=== PATIENT | male | born 1970 | race Caucasian/White ===

== ENCOUNTER → 2018-12-15 | Outpatient (CLI) | payer BC ==
[~2018-12-15] MED LIST: ASPI81 PO; BACL10TA PO; DOCU-342 PO; DOCU283E PR; GABA-533 PO; INSU100I15 SQ; INSU3INS3 SQ; LIDO700A15 TD; LISI-661 PO; MERO1I IV; METO25 PO; MULT-1239 PO; PANT40TA25 PO; POLY238P2 PO; TAMS-1 PO
== END | disposition home or self-care (01) ==
LOC: HBOWC 09:38
PROVIDERS: ATTEND Emergency Medicine
DX: E11.622 Type 2 diabetes mellitus with other skin ulcer (principal); L89.153 Pressure ulcer of sacral region, stage 3; L98.492 Non-pressure chronic ulcer of skin of other sites with fat layer exposed; G82.20 Paraplegia, unspecified; E46 Unspecified protein-calorie malnutrition; E11.69 Type 2 diabetes mellitus with other specified complication; M86.9 Osteomyelitis, unspecified; R32 Unspecified urinary incontinence; E11.22 Type 2 diabetes mellitus with diabetic chronic kidney disease; I12.9 Hypertensive chronic kidney disease with stage 1 through stage 4 chronic kidney disease, or unspecified chronic kidney disease; N18.9 Chronic kidney disease, unspecified; E66.9 Obesity, unspecified; Z86.718 Personal history of other venous thrombosis and embolism; Z79.899 Other long term (current) drug therapy; Z79.01 Long term (current) use of anticoagulants; Z79.4 Long term (current) use of insulin; Z68.30 Body mass index [BMI] 30.0-30.9, adult
CPT/HCPCS: 11042; 11045

== ENCOUNTER → 2018-12-29 | Outpatient (CLI) | payer BC ==
[~2018-12-29] MED LIST changes: +LIDOCAINE 2% 5 ML JELLY TP ONE
== END | disposition home or self-care (01) ==
LOC: HBOWC 08:45
PROVIDERS: ATTEND Emergency Medicine
DX: T81.49XD Infection following a procedure, other surgical site, subsequent encounter (principal); E11.622 Type 2 diabetes mellitus with other skin ulcer; L89.153 Pressure ulcer of sacral region, stage 3; L98.492 Non-pressure chronic ulcer of skin of other sites with fat layer exposed; G82.20 Paraplegia, unspecified; E46 Unspecified protein-calorie malnutrition; E11.69 Type 2 diabetes mellitus with other specified complication; M86.9 Osteomyelitis, unspecified; R32 Unspecified urinary incontinence; N31.9 Neuromuscular dysfunction of bladder, unspecified; E11.22 Type 2 diabetes mellitus with diabetic chronic kidney disease; I12.9 Hypertensive chronic kidney disease with stage 1 through stage 4 chronic kidney disease, or unspecified chronic kidney disease; N18.9 Chronic kidney disease, unspecified; E66.9 Obesity, unspecified; Z86.718 Personal history of other venous thrombosis and embolism; Z79.899 Other long term (current) drug therapy; Z79.01 Long term (current) use of anticoagulants; Z79.4 Long term (current) use of insulin; Z68.30 Body mass index [BMI] 30.0-30.9, adult; Y83.8 Other surgical procedures as the cause of abnormal reaction of the patient, or of later complication, without mention of misadventure at the time of the procedure
CPT/HCPCS: 11042

== ENCOUNTER → 2019-01-19 | Outpatient (CLI) | payer BC | END | disposition home or self-care (01) | LOC: HBOWC 08:40 | PROVIDERS: ATTEND Emergency Medicine | DX: T81.49XD Infection following a procedure, other surgical site, subsequent encounter (principal); E11.622 Type 2 diabetes mellitus with other skin ulcer; L89.153 Pressure ulcer of sacral region, stage 3; L98.492 Non-pressure chronic ulcer of skin of other sites with fat layer exposed; G82.20 Paraplegia, unspecified; E46 Unspecified protein-calorie malnutrition; E11.69 Type 2 diabetes mellitus with other specified complication; M86.9 Osteomyelitis, unspecified; R32 Unspecified urinary incontinence; N31.9 Neuromuscular dysfunction of bladder, unspecified; E11.22 Type 2 diabetes mellitus with diabetic chronic kidney disease; I12.9 Hypertensive chronic kidney disease with stage 1 through stage 4 chronic kidney disease, or unspecified chronic kidney disease; N18.9 Chronic kidney disease, unspecified; E66.9 Obesity, unspecified; Z86.718 Personal history of other venous thrombosis and embolism; Z79.899 Other long term (current) drug therapy; Z79.01 Long term (current) use of anticoagulants; Z79.4 Long term (current) use of insulin; Z68.30 Body mass index [BMI] 30.0-30.9, adult; Y83.8 Other surgical procedures as the cause of abnormal reaction of the patient, or of later complication, without mention of misadventure at the time of the procedure | CPT/HCPCS: 11042 ==

== ENCOUNTER 2019-01-22 11:11 | Emergency (ER) | payer BC ==
[~2019-01-22] VITALS: Ht 162.6 cm; Wt 72.7 kg
[~2019-01-22 11:11] MED LIST changes: -LIDOCAINE 2% 5 ML JELLY TP ONE
[2019-01-22] MEDS ORDERED: SULF1TAB42 PO (13:39)
[2019-01-22 13:41] LABS: BASOPHILS % (AUTO) 0.4 % (0.0-2.0); HEMATOCRIT 44.4 % (41-53); HEMOGLOBIN 15.3 g/dL (13.5-17.5); LYMPHOCYTES # (AUTO) 3.4 K/uL (1.0-4.8); LYMPHOCYTES % (AUTO) 34.5 % (22.0-44.0); MEAN CORPUSCULAR HEMOGLOBIN 34.3 pg (26.0-34.0); MEAN CORPUSCULAR HGB CONC 34.5 G/dL (31.0-37.0); MEAN CORPUSCULAR VOLUME 100 fL (80-100); MONOCYTES % (AUTO) 9.6 % (2.0-9.0); NEUTROPHILS # (AUTO) 5.4 K/uL (1.8-7.7); NEUTROPHILS % (AUTO) 54.5 % (40.0-70.0); PLATELET COUNT (AUTO) 227 K/uL (150-450); RED BLOOD CELL COUNT(AUTO) 4.46 MIL/uL (4.50-5.90)
[2019-01-22 13:49] LABS: CALCIUM, TOTAL 9.7 mg/dL (8.8-10.5); CREATININE 1.59 mg/dL (0.60-1.30); POTASSIUM 4.1 mmol/L (3.5-5.1)
[2019-01-22 13:51] LABS: APPEARANCE,URINE TURBID (CLEAR); BILIRUBIN,URINE PRELIM. POSITIVE (NEGATIVE); GLUCOSE, URINE (UA) NEGATIVE (NEGATIVE); KETONES,URINE 15 mg/dL (NEGATIVE); LEUKOCYTE ESTERASE ,URINE MODERATE (NEGATIVE); NITRATE,URINE POSITIVE (NEGATIVE); OCCULT BLOOD,URINE LARGE (NEGATIVE); PROTEIN,URINE SEE CONFIRM (NEGATIVE)
[2019-01-22 13:55] LABS: ALBUMIN 3.8 g/dL (3.4-5.0); BILIRUBIN,TOTAL 0.4 mg/dL (0.1-1.0)
[2019-01-22 13:58] LABS: SULFOSALICYLIC ACID,URINE 3+ (Negative)
[2019-01-22 14:01] LABS: BACTERIA,URINE None Seen /HPF (None Seen); RBC,URINE Full Field /HPF (0-2); SQUAMOUS EPITHELIAL CELL,UR Rare /LPF (None Seen); WBC,URINE 0-2 /HPF (0-5)
[2019-01-22 14:37] VITALS: BP 145/83
[2019-01-22] MEDS ORDERED: CefTRIAXone 1 GM/DEXTROSE 50 ML IV ONE (14:45)
== END 2019-01-22 15:47 | disposition home or self-care (01) ==
LOC: EMS 11:13
DX: N39.0 Urinary tract infection, site not specified (principal); R31.9 Hematuria, unspecified; E11.9 Type 2 diabetes mellitus without complications; E78.00 Pure hypercholesterolemia, unspecified; I10 Essential (primary) hypertension; Z98.890 Other specified postprocedural states; Z79.82 Long term (current) use of aspirin; Z79.899 Other long term (current) drug therapy
CPT/HCPCS: 36415; 51702; 80053; 81001; 82962; 85025; 96365; 99284; J0696

== ENCOUNTER 2019-01-23 06:19 | Emergency (ER) | payer BC ==
[~2019-01-23] VITALS: Ht 162.6 cm; Wt 77.3 kg
[~2019-01-23 06:19] MED LIST changes: +SULF1TAB42 PO
[2019-01-23 06:51] LABS: GLUCOSE,POINT OF CARE 116 MG/DL (70-110)
[2019-01-23 08:19] VITALS: BP 132/78
[2019-01-24] MEDS ORDERED: CEPH125S23 PO (20:59)
== END 2019-01-23 08:35 | disposition home or self-care (01) ==
LOC: EMS 06:22
DX: T83.038A Leakage of other urinary catheter, initial encounter (principal); R33.9 Retention of urine, unspecified; E78.00 Pure hypercholesterolemia, unspecified; E11.9 Type 2 diabetes mellitus without complications; I10 Essential (primary) hypertension; Z98.890 Other specified postprocedural states; Z79.82 Long term (current) use of aspirin; Z88.1 Allergy status to other antibiotic agents; Z79.4 Long term (current) use of insulin; Y73.2 Prosthetic and other implants, materials and accessory gastroenterology and urology devices associated with adverse incidents
CPT/HCPCS: 51702

== ENCOUNTER 2019-01-24 20:52 | Emergency (ER) | payer BC ==
[~2019-01-24] VITALS: Ht 162.6 cm; Wt 77.3 kg
[~2019-01-24 20:52] MED LIST changes: -DOCU-342 PO; -DOCU283E PR; -INSU100I15 SQ; -LIDO700A15 TD; -MERO1I IV; -PANT40TA25 PO; -POLY238P2 PO; -TAMS-1 PO
[2019-01-24] MEDS ORDERED: CEPH125S23 PO (20:59)
[2019-01-24 21:09] LABS: GLUCOSE,POINT OF CARE 99 MG/DL (70-110)
[2019-01-24 22:19] LABS: BASOPHILS % (AUTO) 0.9 % (0.0-2.0); EOSINOPHILS % (AUTO) 2.6 % (1.0-6.0); HEMATOCRIT 42.3 % (41-53); LYMPHOCYTES # (AUTO) 3.1 K/uL (1.0-4.8); MEAN CORPUSCULAR HEMOGLOBIN 35.1 pg (26.0-34.0); MEAN CORPUSCULAR HGB CONC 35.4 G/dL (31.0-37.0); MEAN CORPUSCULAR VOLUME 99 fL (80-100); MONOCYTES # (AUTO) 0.9 K/uL (0.1-1.0); MONOCYTES % (AUTO) 9.9 % (2.0-9.0); NEUTROPHILS # (AUTO) 4.7 K/uL (1.8-7.7); NEUTROPHILS % (AUTO) 52.6 % (40.0-70.0); PLATELET COUNT (AUTO) 242 K/uL (150-450); RED BLOOD CELL COUNT(AUTO) 4.26 MIL/uL (4.50-5.90)
[2019-01-24 22:25] LABS: CALCIUM, TOTAL 9.9 mg/dL (8.8-10.5); CREATININE 1.69 mg/dL (0.60-1.30); POTASSIUM 4.4 mmol/L (3.5-5.1)
[2019-01-24 22:30] LABS: ALBUMIN 3.9 g/dL (3.4-5.0); BILIRUBIN,TOTAL 0.4 mg/dL (0.1-1.0); TOTAL PROTEIN, SERUM 8.8 g/dL (6.4-8.2)
[2019-01-24 22:39] VITALS: BP 134/88
== END 2019-01-24 23:14 | disposition home or self-care (01) ==
LOC: EMS 20:53
DX: T83.098A Other mechanical complication of other urinary catheter, initial encounter (principal); E11.22 Type 2 diabetes mellitus with diabetic chronic kidney disease; I12.9 Hypertensive chronic kidney disease with stage 1 through stage 4 chronic kidney disease, or unspecified chronic kidney disease; N18.9 Chronic kidney disease, unspecified; E78.00 Pure hypercholesterolemia, unspecified; Z98.890 Other specified postprocedural states; Z79.4 Long term (current) use of insulin; Z79.899 Other long term (current) drug therapy; Z79.82 Long term (current) use of aspirin; Y84.6 Urinary catheterization as the cause of abnormal reaction of the patient, or of later complication, without mention of misadventure at the time of the procedure
CPT/HCPCS: 51702

== ENCOUNTER → 2019-01-26 | Outpatient (CLI) | payer BC ==
[~2019-01-26] MED LIST changes: +CEPH125S23 PO
== END | disposition home or self-care (01) ==
LOC: HBOWC 07:55
PROVIDERS: ATTEND Emergency Medicine
DX: T81.49XD Infection following a procedure, other surgical site, subsequent encounter (principal); E11.622 Type 2 diabetes mellitus with other skin ulcer; L89.153 Pressure ulcer of sacral region, stage 3; L98.492 Non-pressure chronic ulcer of skin of other sites with fat layer exposed; G82.20 Paraplegia, unspecified; E46 Unspecified protein-calorie malnutrition; E11.69 Type 2 diabetes mellitus with other specified complication; M86.9 Osteomyelitis, unspecified; R32 Unspecified urinary incontinence; N31.9 Neuromuscular dysfunction of bladder, unspecified; E11.22 Type 2 diabetes mellitus with diabetic chronic kidney disease; I12.9 Hypertensive chronic kidney disease with stage 1 through stage 4 chronic kidney disease, or unspecified chronic kidney disease; N18.9 Chronic kidney disease, unspecified; E66.9 Obesity, unspecified; Z86.718 Personal history of other venous thrombosis and embolism; Z79.899 Other long term (current) drug therapy; Z79.01 Long term (current) use of anticoagulants; Z79.4 Long term (current) use of insulin; Z68.30 Body mass index [BMI] 30.0-30.9, adult; Y83.8 Other surgical procedures as the cause of abnormal reaction of the patient, or of later complication, without mention of misadventure at the time of the procedure
CPT/HCPCS: 11042

== ENCOUNTER → 2019-02-02 | Outpatient (CLI) | payer BC ==
[~2019-02-02] MED LIST changes: +LIDOCAINE 2% 5 ML JELLY TP ONE
== END | disposition home or self-care (01) ==
LOC: HBOWC 08:33
PROVIDERS: ATTEND Emergency Medicine
DX: E11.622 Type 2 diabetes mellitus with other skin ulcer (principal); L89.153 Pressure ulcer of sacral region, stage 3; L98.492 Non-pressure chronic ulcer of skin of other sites with fat layer exposed; G82.20 Paraplegia, unspecified; E46 Unspecified protein-calorie malnutrition; E11.69 Type 2 diabetes mellitus with other specified complication; M86.9 Osteomyelitis, unspecified; R32 Unspecified urinary incontinence; N31.9 Neuromuscular dysfunction of bladder, unspecified; E11.22 Type 2 diabetes mellitus with diabetic chronic kidney disease; I12.9 Hypertensive chronic kidney disease with stage 1 through stage 4 chronic kidney disease, or unspecified chronic kidney disease; N18.9 Chronic kidney disease, unspecified; E66.9 Obesity, unspecified; Z86.718 Personal history of other venous thrombosis and embolism; Z79.899 Other long term (current) drug therapy; Z79.01 Long term (current) use of anticoagulants; Z79.4 Long term (current) use of insulin; Z68.30 Body mass index [BMI] 30.0-30.9, adult
CPT/HCPCS: 11042

== ENCOUNTER 2019-02-04 15:51 | Emergency (ER) | payer BC ==
[~2019-02-04] VITALS: Ht 162.6 cm; Wt 81.8 kg
[~2019-02-04 15:51] MED LIST changes: -LIDOCAINE 2% 5 ML JELLY TP ONE
[2019-02-04] MEDS ORDERED: OXYBUTYNIN CHLORIDE 5 MG ER TABLET PO ONE (18:45)
[2019-02-04 18:56] LABS: APPEARANCE,URINE CLEAR (CLEAR); BILIRUBIN,URINE NEGATIVE (NEGATIVE); GLUCOSE, URINE (UA) NEGATIVE (NEGATIVE); KETONES,URINE NEGATIVE (NEGATIVE); LEUKOCYTE ESTERASE ,URINE TRACE (NEGATIVE); NITRATE,URINE NEGATIVE (NEGATIVE); OCCULT BLOOD,URINE NEGATIVE (NEGATIVE); PROTEIN,URINE NEGATIVE (NEGATIVE); UROBILINOGEN,URINE 0.2 mg/dL (<=1.0)
[2019-02-04 19:18] LABS: RBC,URINE None Seen /HPF (0-2)
[2019-02-04 19:21] LABS: YEAST,URINE Moderate /HPF (None Seen)
[2019-02-04 19:22] LABS: BACTERIA,URINE Rare /HPF (None Seen)
[2019-02-04 20:07] VITALS: BP 148/93
[2019-02-04] MEDS ORDERED: HYDROCODONE/ACETAMINOPHEN 5-325 MG TABLET PO ONE (20:15)
== END 2019-02-04 20:51 | disposition home or self-care (01) ==
LOC: EMS 15:52
DX: R10.9 Unspecified abdominal pain (principal); E11.9 Type 2 diabetes mellitus without complications; E78.00 Pure hypercholesterolemia, unspecified; I10 Essential (primary) hypertension; Z98.890 Other specified postprocedural states; Z79.4 Long term (current) use of insulin; Z79.899 Other long term (current) drug therapy; Z99.3 Dependence on wheelchair
CPT/HCPCS: 87086

== ENCOUNTER → 2019-02-15 | Outpatient (CLI) | payer BC ==
[~2019-02-15] MED LIST changes: -CEPH125S23 PO; +LIDOCAINE 2% 5 ML JELLY ONE
== END | disposition home or self-care (01) ==
LOC: HBOWC 08:42
PROVIDERS: ATTEND Surgery Plastic and Reconstructive Surgery
DX: E11.622 Type 2 diabetes mellitus with other skin ulcer (principal); L89.153 Pressure ulcer of sacral region, stage 3; L98.493 Non-pressure chronic ulcer of skin of other sites with necrosis of muscle; G82.20 Paraplegia, unspecified; E46 Unspecified protein-calorie malnutrition; E11.69 Type 2 diabetes mellitus with other specified complication; M86.9 Osteomyelitis, unspecified; R32 Unspecified urinary incontinence; N31.9 Neuromuscular dysfunction of bladder, unspecified; E11.22 Type 2 diabetes mellitus with diabetic chronic kidney disease; I12.9 Hypertensive chronic kidney disease with stage 1 through stage 4 chronic kidney disease, or unspecified chronic kidney disease; N18.9 Chronic kidney disease, unspecified; E66.9 Obesity, unspecified; Z86.718 Personal history of other venous thrombosis and embolism; E78.00 Pure hypercholesterolemia, unspecified; Z79.899 Other long term (current) drug therapy; Z79.01 Long term (current) use of anticoagulants; Z79.4 Long term (current) use of insulin; Z68.30 Body mass index [BMI] 30.0-30.9, adult; Z79.82 Long term (current) use of aspirin; Z88.1 Allergy status to other antibiotic agents
CPT/HCPCS: 11043

== ENCOUNTER → 2019-02-23 | Outpatient (CLI) | payer BC ==
[~2019-02-23] MED LIST changes: -LIDOCAINE 2% 5 ML JELLY ONE
== END | disposition home or self-care (01) ==
LOC: HBOWC 08:37
PROVIDERS: ATTEND Emergency Medicine
DX: E11.622 Type 2 diabetes mellitus with other skin ulcer (principal); L89.153 Pressure ulcer of sacral region, stage 3; L98.493 Non-pressure chronic ulcer of skin of other sites with necrosis of muscle; G82.20 Paraplegia, unspecified; E46 Unspecified protein-calorie malnutrition; E11.69 Type 2 diabetes mellitus with other specified complication; M86.9 Osteomyelitis, unspecified; R32 Unspecified urinary incontinence; N31.9 Neuromuscular dysfunction of bladder, unspecified; E11.22 Type 2 diabetes mellitus with diabetic chronic kidney disease; I12.9 Hypertensive chronic kidney disease with stage 1 through stage 4 chronic kidney disease, or unspecified chronic kidney disease; N18.9 Chronic kidney disease, unspecified; E66.9 Obesity, unspecified; Z86.718 Personal history of other venous thrombosis and embolism; E78.00 Pure hypercholesterolemia, unspecified; Z79.899 Other long term (current) drug therapy; Z79.01 Long term (current) use of anticoagulants; Z79.4 Long term (current) use of insulin; Z68.30 Body mass index [BMI] 30.0-30.9, adult; Z79.82 Long term (current) use of aspirin; Z88.1 Allergy status to other antibiotic agents
CPT/HCPCS: 11042; 87070; 87205

== ENCOUNTER → 2019-03-02 | Outpatient (CLI) | payer BC | END | disposition home or self-care (01) | LOC: LABPV 11:47 | PROVIDERS: ATTEND Emergency Medicine | DX: L89.153 Pressure ulcer of sacral region, stage 3 (principal) | CPT/HCPCS: 84134 ==

== ENCOUNTER → 2019-03-02 | Outpatient (CLI) | payer BC ==
[~2019-03-02] MED LIST changes: +LIDOCAINE 2% 5 ML JELLY TP ONE
== END | disposition home or self-care (01) ==
LOC: HBOWC 08:32
PROVIDERS: ATTEND Emergency Medicine
DX: E11.622 Type 2 diabetes mellitus with other skin ulcer (principal); L89.153 Pressure ulcer of sacral region, stage 3; L98.493 Non-pressure chronic ulcer of skin of other sites with necrosis of muscle; G82.20 Paraplegia, unspecified; E46 Unspecified protein-calorie malnutrition; E11.69 Type 2 diabetes mellitus with other specified complication; M86.9 Osteomyelitis, unspecified; R32 Unspecified urinary incontinence; N31.9 Neuromuscular dysfunction of bladder, unspecified; E11.22 Type 2 diabetes mellitus with diabetic chronic kidney disease; I12.9 Hypertensive chronic kidney disease with stage 1 through stage 4 chronic kidney disease, or unspecified chronic kidney disease; N18.9 Chronic kidney disease, unspecified; E66.9 Obesity, unspecified; Z86.718 Personal history of other venous thrombosis and embolism; E78.00 Pure hypercholesterolemia, unspecified; Z79.899 Other long term (current) drug therapy; Z79.01 Long term (current) use of anticoagulants; Z79.4 Long term (current) use of insulin; Z68.30 Body mass index [BMI] 30.0-30.9, adult; Z79.82 Long term (current) use of aspirin; Z88.1 Allergy status to other antibiotic agents
CPT/HCPCS: 11042

== ENCOUNTER → 2019-03-09 | Outpatient (CLI) | payer BC | END | disposition home or self-care (01) | LOC: HBOWC 08:37 | PROVIDERS: ATTEND Emergency Medicine | DX: E11.622 Type 2 diabetes mellitus with other skin ulcer (principal); L89.153 Pressure ulcer of sacral region, stage 3; L98.493 Non-pressure chronic ulcer of skin of other sites with necrosis of muscle; G82.20 Paraplegia, unspecified; E46 Unspecified protein-calorie malnutrition; E11.69 Type 2 diabetes mellitus with other specified complication; M86.9 Osteomyelitis, unspecified; R32 Unspecified urinary incontinence; N31.9 Neuromuscular dysfunction of bladder, unspecified; E11.22 Type 2 diabetes mellitus with diabetic chronic kidney disease; I12.9 Hypertensive chronic kidney disease with stage 1 through stage 4 chronic kidney disease, or unspecified chronic kidney disease; N18.9 Chronic kidney disease, unspecified; E66.9 Obesity, unspecified; Z86.718 Personal history of other venous thrombosis and embolism; E78.00 Pure hypercholesterolemia, unspecified; Z79.899 Other long term (current) drug therapy; Z79.01 Long term (current) use of anticoagulants; Z79.4 Long term (current) use of insulin; Z68.30 Body mass index [BMI] 30.0-30.9, adult; Z79.82 Long term (current) use of aspirin; Z88.1 Allergy status to other antibiotic agents | CPT/HCPCS: 11042 ==

== ENCOUNTER 2019-03-12 11:35 | Emergency (ER) | payer BC ==
[~2019-03-12] VITALS: Ht 162.6 cm; Wt 81.8 kg
[~2019-03-12 11:35] MED LIST changes: +ASPI-728 PO; -ASPI81 PO; -LIDOCAINE 2% 5 ML JELLY TP ONE
[2019-03-12 11:40] VITALS: BP 110/80
[2019-03-12 12:04] LABS: GLUCOSE,POINT OF CARE 182 MG/DL (70-110)
[2019-03-12 16:46] LABS: APPEARANCE,URINE CLOUDY (CLEAR); BILIRUBIN,URINE NEGATIVE (NEGATIVE); GLUCOSE, URINE (UA) NEGATIVE (NEGATIVE); KETONES,URINE NEGATIVE (NEGATIVE); LEUKOCYTE ESTERASE ,URINE MODERATE (NEGATIVE); NITRATE,URINE NEGATIVE (NEGATIVE); OCCULT BLOOD,URINE LARGE (NEGATIVE); PROTEIN,URINE POS 1+ (NEGATIVE); UROBILINOGEN,URINE 0.2 mg/dL (<=1.0)
[2019-03-12 16:56] LABS: BACTERIA,URINE Few /HPF (None Seen); SQUAMOUS EPITHELIAL CELL,UR Rare /LPF (None Seen)
== END 2019-03-12 17:14 | disposition home or self-care (01) ==
LOC: EMS 11:43
DX: S31.010A Laceration without foreign body of lower back and pelvis without penetration into retroperitoneum, initial encounter (principal); E11.622 Type 2 diabetes mellitus with other skin ulcer; L89.152 Pressure ulcer of sacral region, stage 2; T83.038A Leakage of other urinary catheter, initial encounter; E78.00 Pure hypercholesterolemia, unspecified; I10 Essential (primary) hypertension; Z98.890 Other specified postprocedural states; Z79.899 Other long term (current) drug therapy; Z79.82 Long term (current) use of aspirin; Y84.6 Urinary catheterization as the cause of abnormal reaction of the patient, or of later complication, without mention of misadventure at the time of the procedure; W05.0XXA Fall from non-moving wheelchair, initial encounter; Y93.89 Activity, other specified; Y92.89 Other specified places as the place of occurrence of the external cause; Y99.8 Other external cause status
CPT/HCPCS: 51702; 87086

== ENCOUNTER → 2019-03-16 | Outpatient (CLI) | payer BC ==
[~2019-03-16] MED LIST changes: +LIDOCAINE 2% 5 ML JELLY TP ONE
== END | disposition home or self-care (01) ==
LOC: HBOWC 08:32
PROVIDERS: ATTEND Emergency Medicine
DX: E11.622 Type 2 diabetes mellitus with other skin ulcer (principal); L89.153 Pressure ulcer of sacral region, stage 3; L98.492 Non-pressure chronic ulcer of skin of other sites with fat layer exposed; G82.20 Paraplegia, unspecified; E46 Unspecified protein-calorie malnutrition; E11.69 Type 2 diabetes mellitus with other specified complication; M86.9 Osteomyelitis, unspecified; R32 Unspecified urinary incontinence; N31.9 Neuromuscular dysfunction of bladder, unspecified; E11.22 Type 2 diabetes mellitus with diabetic chronic kidney disease; I12.9 Hypertensive chronic kidney disease with stage 1 through stage 4 chronic kidney disease, or unspecified chronic kidney disease; N18.9 Chronic kidney disease, unspecified; E66.9 Obesity, unspecified; Z86.718 Personal history of other venous thrombosis and embolism; E78.00 Pure hypercholesterolemia, unspecified; Z79.899 Other long term (current) drug therapy; Z79.01 Long term (current) use of anticoagulants; Z79.4 Long term (current) use of insulin; Z68.30 Body mass index [BMI] 30.0-30.9, adult; Z79.82 Long term (current) use of aspirin; Z88.1 Allergy status to other antibiotic agents
CPT/HCPCS: 11042

== ENCOUNTER 2019-03-19 06:52 | Emergency (ER) | payer BC ==
[~2019-03-19] VITALS: Ht 162.6 cm; Wt 77.3 kg
[~2019-03-19 06:52] MED LIST changes: -LIDOCAINE 2% 5 ML JELLY TP ONE
[2019-03-19 11:50] VITALS: BP 125/88
== END 2019-03-19 12:06 | disposition home or self-care (01) ==
LOC: EMS 06:52
DX: T83.091A Other mechanical complication of indwelling urethral catheter, initial encounter (principal); E11.9 Type 2 diabetes mellitus without complications; I10 Essential (primary) hypertension; E78.00 Pure hypercholesterolemia, unspecified; Z79.4 Long term (current) use of insulin; Z79.899 Other long term (current) drug therapy; Z79.82 Long term (current) use of aspirin; Y84.1 Kidney dialysis as the cause of abnormal reaction of the patient, or of later complication, without mention of misadventure at the time of the procedure
CPT/HCPCS: 51702

== ENCOUNTER → 2019-03-30 | Outpatient (CLI) | payer BC ==
[~2019-03-30] MED LIST changes: +LIDOCAINE 2% 5 ML JELLY TP ONE
== END | disposition home or self-care (01) ==
LOC: HBOWC 07:18
PROVIDERS: ATTEND Emergency Medicine
DX: E11.622 Type 2 diabetes mellitus with other skin ulcer (principal); L89.153 Pressure ulcer of sacral region, stage 3; L98.492 Non-pressure chronic ulcer of skin of other sites with fat layer exposed; G82.20 Paraplegia, unspecified; E46 Unspecified protein-calorie malnutrition; E11.69 Type 2 diabetes mellitus with other specified complication; M86.9 Osteomyelitis, unspecified; R32 Unspecified urinary incontinence; N31.9 Neuromuscular dysfunction of bladder, unspecified; E11.22 Type 2 diabetes mellitus with diabetic chronic kidney disease; I12.9 Hypertensive chronic kidney disease with stage 1 through stage 4 chronic kidney disease, or unspecified chronic kidney disease; N18.9 Chronic kidney disease, unspecified; E66.9 Obesity, unspecified; Z86.718 Personal history of other venous thrombosis and embolism; E78.00 Pure hypercholesterolemia, unspecified; Z79.899 Other long term (current) drug therapy; Z79.01 Long term (current) use of anticoagulants; Z79.4 Long term (current) use of insulin; Z68.30 Body mass index [BMI] 30.0-30.9, adult; Z79.82 Long term (current) use of aspirin; Z88.1 Allergy status to other antibiotic agents
CPT/HCPCS: 11042

== ENCOUNTER → 2019-04-06 | Outpatient (CLI) | payer BC ==
[~2019-04-06] MED LIST changes: -LIDOCAINE 2% 5 ML JELLY TP ONE
== END | disposition home or self-care (01) ==
LOC: HBOWC 08:17
PROVIDERS: ATTEND Emergency Medicine
DX: E11.622 Type 2 diabetes mellitus with other skin ulcer (principal); L89.153 Pressure ulcer of sacral region, stage 3; L98.492 Non-pressure chronic ulcer of skin of other sites with fat layer exposed; G82.20 Paraplegia, unspecified; E46 Unspecified protein-calorie malnutrition; E11.69 Type 2 diabetes mellitus with other specified complication; M86.8X8 Other osteomyelitis, other site; R32 Unspecified urinary incontinence; N31.9 Neuromuscular dysfunction of bladder, unspecified; E11.22 Type 2 diabetes mellitus with diabetic chronic kidney disease; I12.9 Hypertensive chronic kidney disease with stage 1 through stage 4 chronic kidney disease, or unspecified chronic kidney disease; N18.9 Chronic kidney disease, unspecified; E66.9 Obesity, unspecified; E78.00 Pure hypercholesterolemia, unspecified; Z86.718 Personal history of other venous thrombosis and embolism; Z79.899 Other long term (current) drug therapy; Z79.01 Long term (current) use of anticoagulants; Z79.4 Long term (current) use of insulin; Z68.30 Body mass index [BMI] 30.0-30.9, adult; Z79.82 Long term (current) use of aspirin; Z88.1 Allergy status to other antibiotic agents
CPT/HCPCS: 11042

== ENCOUNTER → 2019-04-13 | Outpatient (CLI) | payer BC ==
[~2019-04-13] MED LIST changes: +LIDOCAINE 2% 5 ML JELLY ONE
== END | disposition home or self-care (01) ==
LOC: HBOWC 08:08
PROVIDERS: ATTEND Emergency Medicine
DX: E11.622 Type 2 diabetes mellitus with other skin ulcer (principal); L89.153 Pressure ulcer of sacral region, stage 3; L98.492 Non-pressure chronic ulcer of skin of other sites with fat layer exposed; G82.20 Paraplegia, unspecified; E46 Unspecified protein-calorie malnutrition; E11.69 Type 2 diabetes mellitus with other specified complication; M86.8X8 Other osteomyelitis, other site; R32 Unspecified urinary incontinence; N31.9 Neuromuscular dysfunction of bladder, unspecified; E11.22 Type 2 diabetes mellitus with diabetic chronic kidney disease; I12.9 Hypertensive chronic kidney disease with stage 1 through stage 4 chronic kidney disease, or unspecified chronic kidney disease; N18.9 Chronic kidney disease, unspecified; E66.9 Obesity, unspecified; E78.00 Pure hypercholesterolemia, unspecified; Z86.718 Personal history of other venous thrombosis and embolism; Z79.899 Other long term (current) drug therapy; Z79.01 Long term (current) use of anticoagulants; Z79.4 Long term (current) use of insulin; Z68.30 Body mass index [BMI] 30.0-30.9, adult; Z79.82 Long term (current) use of aspirin; Z88.1 Allergy status to other antibiotic agents
CPT/HCPCS: 11042

== ENCOUNTER → 2019-04-20 | Outpatient (CLI) | payer BC ==
[~2019-04-20] MED LIST changes: -LIDOCAINE 2% 5 ML JELLY ONE; +LIDOCAINE 2% 5 ML JELLY TP ONE
== END | disposition home or self-care (01) ==
LOC: HBOWC 08:26
PROVIDERS: ATTEND Emergency Medicine
DX: E11.622 Type 2 diabetes mellitus with other skin ulcer (principal); L89.153 Pressure ulcer of sacral region, stage 3; L98.492 Non-pressure chronic ulcer of skin of other sites with fat layer exposed; G82.20 Paraplegia, unspecified; E46 Unspecified protein-calorie malnutrition; E11.69 Type 2 diabetes mellitus with other specified complication; M86.8X8 Other osteomyelitis, other site; R32 Unspecified urinary incontinence; N31.9 Neuromuscular dysfunction of bladder, unspecified; E11.22 Type 2 diabetes mellitus with diabetic chronic kidney disease; I12.9 Hypertensive chronic kidney disease with stage 1 through stage 4 chronic kidney disease, or unspecified chronic kidney disease; N18.9 Chronic kidney disease, unspecified; E66.9 Obesity, unspecified; E78.00 Pure hypercholesterolemia, unspecified; Z86.718 Personal history of other venous thrombosis and embolism; Z79.899 Other long term (current) drug therapy; Z79.01 Long term (current) use of anticoagulants; Z79.4 Long term (current) use of insulin; Z68.30 Body mass index [BMI] 30.0-30.9, adult; Z79.82 Long term (current) use of aspirin; Z88.1 Allergy status to other antibiotic agents
CPT/HCPCS: 11042

== ENCOUNTER → 2019-04-27 | Outpatient (CLI) | payer BC | END | disposition home or self-care (01) | LOC: HBOWC 08:25 | PROVIDERS: ATTEND Emergency Medicine | DX: E11.622 Type 2 diabetes mellitus with other skin ulcer (principal); L89.153 Pressure ulcer of sacral region, stage 3; L98.492 Non-pressure chronic ulcer of skin of other sites with fat layer exposed; G82.20 Paraplegia, unspecified; E46 Unspecified protein-calorie malnutrition; E11.69 Type 2 diabetes mellitus with other specified complication; M86.8X8 Other osteomyelitis, other site; R32 Unspecified urinary incontinence; N31.9 Neuromuscular dysfunction of bladder, unspecified; E11.22 Type 2 diabetes mellitus with diabetic chronic kidney disease; I12.9 Hypertensive chronic kidney disease with stage 1 through stage 4 chronic kidney disease, or unspecified chronic kidney disease; N18.9 Chronic kidney disease, unspecified; E66.9 Obesity, unspecified; E78.00 Pure hypercholesterolemia, unspecified; Z86.718 Personal history of other venous thrombosis and embolism; Z79.899 Other long term (current) drug therapy; Z79.01 Long term (current) use of anticoagulants; Z79.4 Long term (current) use of insulin; Z68.30 Body mass index [BMI] 30.0-30.9, adult; Z79.82 Long term (current) use of aspirin; Z88.1 Allergy status to other antibiotic agents | CPT/HCPCS: 11042 ==

== ENCOUNTER → 2019-05-04 | Outpatient (CLI) | payer BC ==
[~2019-05-04] MED LIST changes: +SILVER NITRATE APPLICATOR 1 EA STICK TP ONE
== END | disposition home or self-care (01) ==
LOC: HBOWC 08:17
PROVIDERS: ATTEND Emergency Medicine
DX: E11.622 Type 2 diabetes mellitus with other skin ulcer (principal); L89.153 Pressure ulcer of sacral region, stage 3; L98.492 Non-pressure chronic ulcer of skin of other sites with fat layer exposed; G82.20 Paraplegia, unspecified; E46 Unspecified protein-calorie malnutrition; E11.69 Type 2 diabetes mellitus with other specified complication; M86.8X8 Other osteomyelitis, other site; R32 Unspecified urinary incontinence; N31.9 Neuromuscular dysfunction of bladder, unspecified; E11.22 Type 2 diabetes mellitus with diabetic chronic kidney disease; I12.9 Hypertensive chronic kidney disease with stage 1 through stage 4 chronic kidney disease, or unspecified chronic kidney disease; N18.9 Chronic kidney disease, unspecified; E66.9 Obesity, unspecified; E78.00 Pure hypercholesterolemia, unspecified; Z86.718 Personal history of other venous thrombosis and embolism; Z79.899 Other long term (current) drug therapy; Z79.01 Long term (current) use of anticoagulants; Z79.4 Long term (current) use of insulin; Z68.30 Body mass index [BMI] 30.0-30.9, adult; Z79.82 Long term (current) use of aspirin; Z88.1 Allergy status to other antibiotic agents
CPT/HCPCS: 11042

== ENCOUNTER → 2019-05-10 | Outpatient (CLI) | payer BC ==
[~2019-05-10] MED LIST changes: -SILVER NITRATE APPLICATOR 1 EA STICK TP ONE
== END | disposition home or self-care (01) ==
LOC: HBOWC 08:18
PROVIDERS: ATTEND Surgery Plastic and Reconstructive Surgery
DX: E11.622 Type 2 diabetes mellitus with other skin ulcer (principal); L89.153 Pressure ulcer of sacral region, stage 3; L98.495 Non-pressure chronic ulcer of skin of other sites with muscle involvement without evidence of necrosis; G82.20 Paraplegia, unspecified; E11.69 Type 2 diabetes mellitus with other specified complication; M86.8X8 Other osteomyelitis, other site; E11.22 Type 2 diabetes mellitus with diabetic chronic kidney disease; I12.9 Hypertensive chronic kidney disease with stage 1 through stage 4 chronic kidney disease, or unspecified chronic kidney disease; N18.9 Chronic kidney disease, unspecified; E46 Unspecified protein-calorie malnutrition
CPT/HCPCS: 11043

== ENCOUNTER → 2019-05-25 | Outpatient (CLI) | payer BC ==
[~2019-05-25] MED LIST changes: -LIDOCAINE 2% 5 ML JELLY TP ONE
== END | disposition home or self-care (01) ==
LOC: HBOWC 08:08
PROVIDERS: ATTEND Emergency Medicine
DX: E11.622 Type 2 diabetes mellitus with other skin ulcer (principal); L89.153 Pressure ulcer of sacral region, stage 3; L98.492 Non-pressure chronic ulcer of skin of other sites with fat layer exposed; G82.20 Paraplegia, unspecified; E46 Unspecified protein-calorie malnutrition; E11.69 Type 2 diabetes mellitus with other specified complication; M86.8X8 Other osteomyelitis, other site; R32 Unspecified urinary incontinence; N31.9 Neuromuscular dysfunction of bladder, unspecified; E11.22 Type 2 diabetes mellitus with diabetic chronic kidney disease; I12.9 Hypertensive chronic kidney disease with stage 1 through stage 4 chronic kidney disease, or unspecified chronic kidney disease; N18.9 Chronic kidney disease, unspecified; E66.9 Obesity, unspecified; E78.00 Pure hypercholesterolemia, unspecified; Z86.718 Personal history of other venous thrombosis and embolism; Z79.899 Other long term (current) drug therapy; Z79.01 Long term (current) use of anticoagulants; Z79.4 Long term (current) use of insulin; Z68.30 Body mass index [BMI] 30.0-30.9, adult; Z79.82 Long term (current) use of aspirin; Z88.1 Allergy status to other antibiotic agents
CPT/HCPCS: 11042

== ENCOUNTER → 2019-06-01 | Outpatient (CLI) | payer BC ==
[~2019-06-01] MED LIST changes: +LIDOCAINE 2% 5 ML JELLY ONE; +SILVER NITRATE APPLICATOR 1 EA STICK TP ONE
== END | disposition home or self-care (01) ==
LOC: HBOWC 08:23
PROVIDERS: ATTEND Emergency Medicine
DX: E11.622 Type 2 diabetes mellitus with other skin ulcer (principal); L89.153 Pressure ulcer of sacral region, stage 3; L98.492 Non-pressure chronic ulcer of skin of other sites with fat layer exposed; G82.20 Paraplegia, unspecified; E46 Unspecified protein-calorie malnutrition; E11.69 Type 2 diabetes mellitus with other specified complication; M86.8X8 Other osteomyelitis, other site; R32 Unspecified urinary incontinence; N31.9 Neuromuscular dysfunction of bladder, unspecified; E11.22 Type 2 diabetes mellitus with diabetic chronic kidney disease; I12.9 Hypertensive chronic kidney disease with stage 1 through stage 4 chronic kidney disease, or unspecified chronic kidney disease; N18.9 Chronic kidney disease, unspecified; E66.9 Obesity, unspecified; E78.00 Pure hypercholesterolemia, unspecified; Z86.718 Personal history of other venous thrombosis and embolism; Z79.899 Other long term (current) drug therapy; Z79.01 Long term (current) use of anticoagulants; Z79.4 Long term (current) use of insulin; Z68.30 Body mass index [BMI] 30.0-30.9, adult; Z79.82 Long term (current) use of aspirin; Z88.1 Allergy status to other antibiotic agents
CPT/HCPCS: 11042

== ENCOUNTER → 2019-06-08 | Outpatient (CLI) | payer BC ==
[~2019-06-08] MED LIST changes: -LIDOCAINE 2% 5 ML JELLY ONE; +LIDOCAINE 2% 5 ML JELLY TP ONE; -SILVER NITRATE APPLICATOR 1 EA STICK TP ONE
== END | disposition home or self-care (01) ==
LOC: HBOWC 08:37
PROVIDERS: ATTEND Emergency Medicine
DX: E11.622 Type 2 diabetes mellitus with other skin ulcer (principal); L89.153 Pressure ulcer of sacral region, stage 3; L98.492 Non-pressure chronic ulcer of skin of other sites with fat layer exposed; G82.20 Paraplegia, unspecified; E46 Unspecified protein-calorie malnutrition; E11.69 Type 2 diabetes mellitus with other specified complication; M86.8X8 Other osteomyelitis, other site; R32 Unspecified urinary incontinence; N31.9 Neuromuscular dysfunction of bladder, unspecified; E11.22 Type 2 diabetes mellitus with diabetic chronic kidney disease; I12.9 Hypertensive chronic kidney disease with stage 1 through stage 4 chronic kidney disease, or unspecified chronic kidney disease; N18.9 Chronic kidney disease, unspecified; E66.9 Obesity, unspecified; E78.00 Pure hypercholesterolemia, unspecified; Z86.718 Personal history of other venous thrombosis and embolism; Z79.899 Other long term (current) drug therapy; Z79.01 Long term (current) use of anticoagulants; Z79.4 Long term (current) use of insulin; Z68.30 Body mass index [BMI] 30.0-30.9, adult; Z79.82 Long term (current) use of aspirin; Z88.1 Allergy status to other antibiotic agents
CPT/HCPCS: 11042

== ENCOUNTER → 2019-06-15 | Outpatient (CLI) | payer BC ==
[~2019-06-15] MED LIST changes: -LIDOCAINE 2% 5 ML JELLY TP ONE
== END | disposition home or self-care (01) ==
LOC: HBOWC 08:24
PROVIDERS: ATTEND Emergency Medicine
DX: E11.622 Type 2 diabetes mellitus with other skin ulcer (principal); L89.153 Pressure ulcer of sacral region, stage 3; L98.492 Non-pressure chronic ulcer of skin of other sites with fat layer exposed; G82.20 Paraplegia, unspecified; E46 Unspecified protein-calorie malnutrition; E11.69 Type 2 diabetes mellitus with other specified complication; M86.8X8 Other osteomyelitis, other site; R32 Unspecified urinary incontinence; N31.9 Neuromuscular dysfunction of bladder, unspecified; E11.22 Type 2 diabetes mellitus with diabetic chronic kidney disease; I12.9 Hypertensive chronic kidney disease with stage 1 through stage 4 chronic kidney disease, or unspecified chronic kidney disease; N18.9 Chronic kidney disease, unspecified; E66.9 Obesity, unspecified; E78.00 Pure hypercholesterolemia, unspecified; Z86.718 Personal history of other venous thrombosis and embolism; Z79.899 Other long term (current) drug therapy; Z79.01 Long term (current) use of anticoagulants; Z79.4 Long term (current) use of insulin; Z68.30 Body mass index [BMI] 30.0-30.9, adult; Z79.82 Long term (current) use of aspirin; Z88.1 Allergy status to other antibiotic agents
CPT/HCPCS: 11042

== ENCOUNTER → 2019-06-22 | Outpatient (CLI) | payer BC | END | disposition home or self-care (01) | LOC: HBOWC 08:22 | PROVIDERS: ATTEND Emergency Medicine | DX: E11.622 Type 2 diabetes mellitus with other skin ulcer (principal); L89.153 Pressure ulcer of sacral region, stage 3; L98.492 Non-pressure chronic ulcer of skin of other sites with fat layer exposed; G82.20 Paraplegia, unspecified; E46 Unspecified protein-calorie malnutrition; E11.69 Type 2 diabetes mellitus with other specified complication; M86.8X8 Other osteomyelitis, other site; R32 Unspecified urinary incontinence; N31.9 Neuromuscular dysfunction of bladder, unspecified; E11.22 Type 2 diabetes mellitus with diabetic chronic kidney disease; I12.9 Hypertensive chronic kidney disease with stage 1 through stage 4 chronic kidney disease, or unspecified chronic kidney disease; N18.9 Chronic kidney disease, unspecified; E66.9 Obesity, unspecified; E78.00 Pure hypercholesterolemia, unspecified; Z86.718 Personal history of other venous thrombosis and embolism; Z79.899 Other long term (current) drug therapy; Z79.01 Long term (current) use of anticoagulants; Z79.4 Long term (current) use of insulin; Z68.30 Body mass index [BMI] 30.0-30.9, adult; Z79.82 Long term (current) use of aspirin; Z88.1 Allergy status to other antibiotic agents | CPT/HCPCS: 11042 ==

== ENCOUNTER → 2019-07-06 | Outpatient (CLI) | payer BC ==
[~2019-07-06] MED LIST changes: +GABA-1201 PO; -GABA-533 PO; +LIDOCAINE 2% 5 ML JELLY TP ONE
== END | disposition home or self-care (01) ==
LOC: HBOWC 08:45
PROVIDERS: ATTEND Emergency Medicine
DX: E11.622 Type 2 diabetes mellitus with other skin ulcer (principal); L89.153 Pressure ulcer of sacral region, stage 3; L98.492 Non-pressure chronic ulcer of skin of other sites with fat layer exposed; G82.20 Paraplegia, unspecified; E46 Unspecified protein-calorie malnutrition; E11.69 Type 2 diabetes mellitus with other specified complication; M86.8X8 Other osteomyelitis, other site; R32 Unspecified urinary incontinence; N31.9 Neuromuscular dysfunction of bladder, unspecified; E11.22 Type 2 diabetes mellitus with diabetic chronic kidney disease; I12.9 Hypertensive chronic kidney disease with stage 1 through stage 4 chronic kidney disease, or unspecified chronic kidney disease; N18.9 Chronic kidney disease, unspecified; E66.9 Obesity, unspecified; E78.00 Pure hypercholesterolemia, unspecified; Z86.718 Personal history of other venous thrombosis and embolism; Z79.899 Other long term (current) drug therapy; Z79.01 Long term (current) use of anticoagulants; Z79.4 Long term (current) use of insulin; Z68.30 Body mass index [BMI] 30.0-30.9, adult; Z79.82 Long term (current) use of aspirin; Z88.1 Allergy status to other antibiotic agents
CPT/HCPCS: 11042

== ENCOUNTER → 2019-07-20 | Outpatient (CLI) | payer BC ==
[~2019-07-20] MED LIST changes: +LIDOCAINE 2% 5 ML JELLY ONE; -LIDOCAINE 2% 5 ML JELLY TP ONE
== END | disposition home or self-care (01) ==
LOC: HBOWC 08:47
PROVIDERS: ATTEND Emergency Medicine
DX: E11.622 Type 2 diabetes mellitus with other skin ulcer (principal); L89.153 Pressure ulcer of sacral region, stage 3; L98.492 Non-pressure chronic ulcer of skin of other sites with fat layer exposed; G82.20 Paraplegia, unspecified; E46 Unspecified protein-calorie malnutrition; E11.69 Type 2 diabetes mellitus with other specified complication; M86.8X8 Other osteomyelitis, other site; R32 Unspecified urinary incontinence; N31.9 Neuromuscular dysfunction of bladder, unspecified; E11.22 Type 2 diabetes mellitus with diabetic chronic kidney disease; I12.9 Hypertensive chronic kidney disease with stage 1 through stage 4 chronic kidney disease, or unspecified chronic kidney disease; N18.9 Chronic kidney disease, unspecified; E66.9 Obesity, unspecified; E78.00 Pure hypercholesterolemia, unspecified; Z86.718 Personal history of other venous thrombosis and embolism; Z79.899 Other long term (current) drug therapy; Z79.01 Long term (current) use of anticoagulants; Z79.4 Long term (current) use of insulin; Z68.30 Body mass index [BMI] 30.0-30.9, adult; Z79.82 Long term (current) use of aspirin; Z88.1 Allergy status to other antibiotic agents
CPT/HCPCS: 11042

== ENCOUNTER → 2019-07-27 | Outpatient (CLI) | payer BC ==
[~2019-07-27] MED LIST changes: -LIDOCAINE 2% 5 ML JELLY ONE
== END | disposition home or self-care (01) ==
LOC: HBOWC 08:43
PROVIDERS: ATTEND Emergency Medicine
DX: E11.622 Type 2 diabetes mellitus with other skin ulcer (principal); L89.153 Pressure ulcer of sacral region, stage 3; L98.492 Non-pressure chronic ulcer of skin of other sites with fat layer exposed; G82.20 Paraplegia, unspecified; E46 Unspecified protein-calorie malnutrition; E11.69 Type 2 diabetes mellitus with other specified complication; M86.8X8 Other osteomyelitis, other site; R32 Unspecified urinary incontinence; N31.9 Neuromuscular dysfunction of bladder, unspecified; E11.22 Type 2 diabetes mellitus with diabetic chronic kidney disease; I12.9 Hypertensive chronic kidney disease with stage 1 through stage 4 chronic kidney disease, or unspecified chronic kidney disease; N18.9 Chronic kidney disease, unspecified; E66.9 Obesity, unspecified; E78.00 Pure hypercholesterolemia, unspecified; Z86.718 Personal history of other venous thrombosis and embolism; Z79.899 Other long term (current) drug therapy; Z79.01 Long term (current) use of anticoagulants; Z68.30 Body mass index [BMI] 30.0-30.9, adult; Z79.82 Long term (current) use of aspirin; Z88.1 Allergy status to other antibiotic agents; Z79.4 Long term (current) use of insulin
CPT/HCPCS: 11042

== ENCOUNTER → 2019-08-10 | Outpatient (CLI) | payer BC ==
[~2019-08-10] MED LIST changes: +LIDOCAINE 2% 5 ML JELLY TP ONE
== END | disposition home or self-care (01) ==
LOC: HBOWC 08:56
PROVIDERS: ATTEND Emergency Medicine
DX: E11.622 Type 2 diabetes mellitus with other skin ulcer (principal); L89.153 Pressure ulcer of sacral region, stage 3; L98.492 Non-pressure chronic ulcer of skin of other sites with fat layer exposed; G82.20 Paraplegia, unspecified; E46 Unspecified protein-calorie malnutrition; E11.69 Type 2 diabetes mellitus with other specified complication; M86.8X8 Other osteomyelitis, other site; R32 Unspecified urinary incontinence; N31.9 Neuromuscular dysfunction of bladder, unspecified; E11.22 Type 2 diabetes mellitus with diabetic chronic kidney disease; I12.9 Hypertensive chronic kidney disease with stage 1 through stage 4 chronic kidney disease, or unspecified chronic kidney disease; N18.9 Chronic kidney disease, unspecified; E66.9 Obesity, unspecified; E78.00 Pure hypercholesterolemia, unspecified; Z86.718 Personal history of other venous thrombosis and embolism; Z79.899 Other long term (current) drug therapy; Z79.01 Long term (current) use of anticoagulants; Z68.30 Body mass index [BMI] 30.0-30.9, adult; Z79.82 Long term (current) use of aspirin; Z88.1 Allergy status to other antibiotic agents; Z79.4 Long term (current) use of insulin
CPT/HCPCS: 11042

== ENCOUNTER → 2019-08-17 | Outpatient (CLI) | payer BC | END | disposition home or self-care (01) | LOC: HBOWC 07:44 | PROVIDERS: ATTEND Emergency Medicine | DX: E11.622 Type 2 diabetes mellitus with other skin ulcer (principal); L89.153 Pressure ulcer of sacral region, stage 3; L98.492 Non-pressure chronic ulcer of skin of other sites with fat layer exposed; G82.20 Paraplegia, unspecified; E46 Unspecified protein-calorie malnutrition; E11.69 Type 2 diabetes mellitus with other specified complication; M86.8X8 Other osteomyelitis, other site; R32 Unspecified urinary incontinence; N31.9 Neuromuscular dysfunction of bladder, unspecified; E11.22 Type 2 diabetes mellitus with diabetic chronic kidney disease; I12.9 Hypertensive chronic kidney disease with stage 1 through stage 4 chronic kidney disease, or unspecified chronic kidney disease; N18.9 Chronic kidney disease, unspecified; E66.9 Obesity, unspecified; E78.00 Pure hypercholesterolemia, unspecified; Z86.718 Personal history of other venous thrombosis and embolism; Z79.899 Other long term (current) drug therapy; Z79.01 Long term (current) use of anticoagulants; Z68.30 Body mass index [BMI] 30.0-30.9, adult; Z79.82 Long term (current) use of aspirin; Z88.1 Allergy status to other antibiotic agents; Z79.4 Long term (current) use of insulin | CPT/HCPCS: 11042 ==

== ENCOUNTER → 2019-08-24 | Outpatient (CLI) | payer BC ==
[~2019-08-24] MED LIST changes: -LIDOCAINE 2% 5 ML JELLY TP ONE
== END | disposition home or self-care (01) ==
LOC: HBOWC 08:49
PROVIDERS: ATTEND Emergency Medicine
DX: E11.622 Type 2 diabetes mellitus with other skin ulcer (principal); L89.153 Pressure ulcer of sacral region, stage 3; L98.492 Non-pressure chronic ulcer of skin of other sites with fat layer exposed; G82.20 Paraplegia, unspecified; E46 Unspecified protein-calorie malnutrition; E11.69 Type 2 diabetes mellitus with other specified complication; M86.8X8 Other osteomyelitis, other site; R32 Unspecified urinary incontinence; N31.9 Neuromuscular dysfunction of bladder, unspecified; E11.22 Type 2 diabetes mellitus with diabetic chronic kidney disease; I12.9 Hypertensive chronic kidney disease with stage 1 through stage 4 chronic kidney disease, or unspecified chronic kidney disease; N18.9 Chronic kidney disease, unspecified; E66.9 Obesity, unspecified; E78.00 Pure hypercholesterolemia, unspecified; Z68.30 Body mass index [BMI] 30.0-30.9, adult; Z86.718 Personal history of other venous thrombosis and embolism; Z79.899 Other long term (current) drug therapy; Z79.01 Long term (current) use of anticoagulants; Z79.82 Long term (current) use of aspirin; Z88.1 Allergy status to other antibiotic agents; Z79.4 Long term (current) use of insulin
CPT/HCPCS: 11042

== ENCOUNTER → 2019-08-30 | Outpatient (CLI) | payer BC | END | disposition home or self-care (01) | LOC: HBOWC 07:50 | PROVIDERS: ATTEND Emergency Medicine | DX: E11.622 Type 2 diabetes mellitus with other skin ulcer (principal); L89.153 Pressure ulcer of sacral region, stage 3; L98.492 Non-pressure chronic ulcer of skin of other sites with fat layer exposed; G82.20 Paraplegia, unspecified; E46 Unspecified protein-calorie malnutrition; E11.69 Type 2 diabetes mellitus with other specified complication; M86.8X8 Other osteomyelitis, other site; R32 Unspecified urinary incontinence; N31.9 Neuromuscular dysfunction of bladder, unspecified; E11.22 Type 2 diabetes mellitus with diabetic chronic kidney disease; I12.9 Hypertensive chronic kidney disease with stage 1 through stage 4 chronic kidney disease, or unspecified chronic kidney disease; N18.9 Chronic kidney disease, unspecified; E66.9 Obesity, unspecified; E78.00 Pure hypercholesterolemia, unspecified; Z68.30 Body mass index [BMI] 30.0-30.9, adult; Z86.718 Personal history of other venous thrombosis and embolism; Z79.899 Other long term (current) drug therapy; Z79.01 Long term (current) use of anticoagulants; Z79.82 Long term (current) use of aspirin; Z88.1 Allergy status to other antibiotic agents; Z79.4 Long term (current) use of insulin | CPT/HCPCS: 11042 ==

== ENCOUNTER 2019-09-01 06:50 | Emergency (ER) | payer BC ==
[~2019-09-01] VITALS: Ht 165.1 cm; Wt 81.8 kg
[2019-09-01 08:58] LABS: BILIRUBIN,URINE NEGATIVE (NEGATIVE); GLUCOSE, URINE (UA) NEGATIVE (NEGATIVE); KETONES,URINE NEGATIVE (NEGATIVE); NITRATE,URINE NEGATIVE (NEGATIVE); PROTEIN,URINE NEGATIVE (NEGATIVE)
[2019-09-01 09:03] VITALS: BP 134/71
[2019-09-01 09:05] LABS: OCCULT BLOOD,URINE MODERATE (NEGATIVE)
[2019-09-01 09:06] LABS: APPEARANCE,URINE HAZY (CLEAR); LEUKOCYTE ESTERASE ,URINE MODERATE (NEGATIVE)
[2019-09-01 09:07] LABS: BACTERIA,URINE Few /HPF (None Seen); RENAL EPITHELIAL CELLS,URINE Few /LPF (None Seen)
== END 2019-09-01 09:38 | disposition home or self-care (01) ==
LOC: EMS 06:50
DX: T83.83XA Hemorrhage due to genitourinary prosthetic devices, implants and grafts, initial encounter (principal); N39.0 Urinary tract infection, site not specified; I10 Essential (primary) hypertension; E78.00 Pure hypercholesterolemia, unspecified; E11.9 Type 2 diabetes mellitus without complications; Z79.899 Other long term (current) drug therapy; Z79.82 Long term (current) use of aspirin; Y84.6 Urinary catheterization as the cause of abnormal reaction of the patient, or of later complication, without mention of misadventure at the time of the procedure; Y92.89 Other specified places as the place of occurrence of the external cause
CPT/HCPCS: 51702; 87086

== ENCOUNTER → 2019-09-07 | Outpatient (CLI) | payer BC | END | disposition home or self-care (01) | LOC: HBOWC 09:12 | PROVIDERS: ATTEND Emergency Medicine | DX: E11.622 Type 2 diabetes mellitus with other skin ulcer (principal); L89.153 Pressure ulcer of sacral region, stage 3; L98.492 Non-pressure chronic ulcer of skin of other sites with fat layer exposed; N31.9 Neuromuscular dysfunction of bladder, unspecified; G82.20 Paraplegia, unspecified; E11.69 Type 2 diabetes mellitus with other specified complication; M86.8X8 Other osteomyelitis, other site; R32 Unspecified urinary incontinence; E11.22 Type 2 diabetes mellitus with diabetic chronic kidney disease; I12.9 Hypertensive chronic kidney disease with stage 1 through stage 4 chronic kidney disease, or unspecified chronic kidney disease; N18.9 Chronic kidney disease, unspecified; E78.00 Pure hypercholesterolemia, unspecified; E46 Unspecified protein-calorie malnutrition; E66.9 Obesity, unspecified; Z68.30 Body mass index [BMI] 30.0-30.9, adult; Z86.718 Personal history of other venous thrombosis and embolism; Z79.899 Other long term (current) drug therapy; Z79.01 Long term (current) use of anticoagulants; Z79.82 Long term (current) use of aspirin; Z79.4 Long term (current) use of insulin; Z88.1 Allergy status to other antibiotic agents | CPT/HCPCS: 11042 ==

== ENCOUNTER → 2019-09-21 | Outpatient (CLI) | payer BC | END | disposition home or self-care (01) | LOC: HBOWC 08:45 | PROVIDERS: ATTEND Emergency Medicine | DX: E11.622 Type 2 diabetes mellitus with other skin ulcer (principal); L89.153 Pressure ulcer of sacral region, stage 3; L98.492 Non-pressure chronic ulcer of skin of other sites with fat layer exposed; G82.20 Paraplegia, unspecified; E46 Unspecified protein-calorie malnutrition; E11.69 Type 2 diabetes mellitus with other specified complication; M86.8X8 Other osteomyelitis, other site; R32 Unspecified urinary incontinence; N31.9 Neuromuscular dysfunction of bladder, unspecified; E11.22 Type 2 diabetes mellitus with diabetic chronic kidney disease; I12.9 Hypertensive chronic kidney disease with stage 1 through stage 4 chronic kidney disease, or unspecified chronic kidney disease; E66.9 Obesity, unspecified; N18.9 Chronic kidney disease, unspecified; E78.00 Pure hypercholesterolemia, unspecified; Z68.30 Body mass index [BMI] 30.0-30.9, adult; Z86.718 Personal history of other venous thrombosis and embolism; Z79.899 Other long term (current) drug therapy; Z79.01 Long term (current) use of anticoagulants; Z79.82 Long term (current) use of aspirin; Z88.1 Allergy status to other antibiotic agents; Z79.4 Long term (current) use of insulin | CPT/HCPCS: 11042 ==

== ENCOUNTER → 2019-09-28 | Outpatient (CLI) | payer BC | END | disposition home or self-care (01) | LOC: HBOWC 08:24 | PROVIDERS: ATTEND Emergency Medicine | DX: E11.622 Type 2 diabetes mellitus with other skin ulcer (principal); L89.153 Pressure ulcer of sacral region, stage 3; L98.492 Non-pressure chronic ulcer of skin of other sites with fat layer exposed; G82.20 Paraplegia, unspecified; E11.69 Type 2 diabetes mellitus with other specified complication; M86.8X8 Other osteomyelitis, other site; R32 Unspecified urinary incontinence; N31.9 Neuromuscular dysfunction of bladder, unspecified; E11.22 Type 2 diabetes mellitus with diabetic chronic kidney disease; I12.9 Hypertensive chronic kidney disease with stage 1 through stage 4 chronic kidney disease, or unspecified chronic kidney disease; N18.9 Chronic kidney disease, unspecified; E78.00 Pure hypercholesterolemia, unspecified; E46 Unspecified protein-calorie malnutrition; E66.9 Obesity, unspecified; Z68.30 Body mass index [BMI] 30.0-30.9, adult; Z86.718 Personal history of other venous thrombosis and embolism; Z79.899 Other long term (current) drug therapy; Z79.01 Long term (current) use of anticoagulants; Z79.82 Long term (current) use of aspirin; Z88.1 Allergy status to other antibiotic agents; Z79.4 Long term (current) use of insulin | CPT/HCPCS: 11042 ==

== ENCOUNTER → 2019-10-12 | Outpatient (CLI) | payer BC | END | disposition home or self-care (01) | LOC: HBOWC 08:26 | PROVIDERS: ATTEND Emergency Medicine | DX: E11.622 Type 2 diabetes mellitus with other skin ulcer (principal); L89.153 Pressure ulcer of sacral region, stage 3; L98.491 Non-pressure chronic ulcer of skin of other sites limited to breakdown of skin; G82.20 Paraplegia, unspecified; E11.69 Type 2 diabetes mellitus with other specified complication; M86.8X8 Other osteomyelitis, other site; R32 Unspecified urinary incontinence; N31.9 Neuromuscular dysfunction of bladder, unspecified; E11.22 Type 2 diabetes mellitus with diabetic chronic kidney disease; I12.9 Hypertensive chronic kidney disease with stage 1 through stage 4 chronic kidney disease, or unspecified chronic kidney disease; N18.9 Chronic kidney disease, unspecified; E78.00 Pure hypercholesterolemia, unspecified; E46 Unspecified protein-calorie malnutrition; E66.9 Obesity, unspecified; Z68.30 Body mass index [BMI] 30.0-30.9, adult; Z86.718 Personal history of other venous thrombosis and embolism; Z79.899 Other long term (current) drug therapy; Z79.01 Long term (current) use of anticoagulants; Z79.82 Long term (current) use of aspirin; Z88.1 Allergy status to other antibiotic agents; Z79.4 Long term (current) use of insulin ==

== ENCOUNTER → 2019-10-19 | Outpatient (CLI) | payer BC | END | disposition home or self-care (01) | LOC: HBOWC 08:28 | PROVIDERS: ATTEND Emergency Medicine | DX: E11.622 Type 2 diabetes mellitus with other skin ulcer (principal); L89.153 Pressure ulcer of sacral region, stage 3; L98.491 Non-pressure chronic ulcer of skin of other sites limited to breakdown of skin; E11.69 Type 2 diabetes mellitus with other specified complication; M86.8X8 Other osteomyelitis, other site; E11.22 Type 2 diabetes mellitus with diabetic chronic kidney disease; I12.9 Hypertensive chronic kidney disease with stage 1 through stage 4 chronic kidney disease, or unspecified chronic kidney disease; N18.9 Chronic kidney disease, unspecified; E78.00 Pure hypercholesterolemia, unspecified; G82.20 Paraplegia, unspecified; E66.9 Obesity, unspecified; Z68.30 Body mass index [BMI] 30.0-30.9, adult; Z79.4 Long term (current) use of insulin; Z79.82 Long term (current) use of aspirin; Z79.01 Long term (current) use of anticoagulants; Z86.718 Personal history of other venous thrombosis and embolism | CPT/HCPCS: G0463; Z7500 ==

== ENCOUNTER → 2019-11-02 | Outpatient (CLI) | payer BC | END | disposition home or self-care (01) | LOC: HBOWC 08:25 | PROVIDERS: ATTEND Emergency Medicine | DX: E11.622 Type 2 diabetes mellitus with other skin ulcer (principal); L89.153 Pressure ulcer of sacral region, stage 3; L98.491 Non-pressure chronic ulcer of skin of other sites limited to breakdown of skin; E11.69 Type 2 diabetes mellitus with other specified complication; M86.8X8 Other osteomyelitis, other site; E11.22 Type 2 diabetes mellitus with diabetic chronic kidney disease; I12.9 Hypertensive chronic kidney disease with stage 1 through stage 4 chronic kidney disease, or unspecified chronic kidney disease; N18.9 Chronic kidney disease, unspecified; E78.00 Pure hypercholesterolemia, unspecified; N31.9 Neuromuscular dysfunction of bladder, unspecified; G82.20 Paraplegia, unspecified; E46 Unspecified protein-calorie malnutrition; E66.9 Obesity, unspecified; Z68.30 Body mass index [BMI] 30.0-30.9, adult; Z79.4 Long term (current) use of insulin; Z79.82 Long term (current) use of aspirin; Z79.01 Long term (current) use of anticoagulants; Z79.899 Other long term (current) drug therapy; Z86.718 Personal history of other venous thrombosis and embolism; Z88.1 Allergy status to other antibiotic agents | CPT/HCPCS: G0463; Z7500 ==

== ENCOUNTER 2020-01-25 12:48 | Emergency (ER) | payer BC, MEDICAID ==
[~2020-01-25] VITALS: Ht 165.1 cm; Wt 72.7 kg
[2020-01-25 13:11] LABS: GLUCOSE,POINT OF CARE 144 MG/DL (70-110)
[2020-01-25 15:48] LABS: APPEARANCE,URINE CLOUDY (CLEAR); BILIRUBIN,URINE NEGATIVE (NEGATIVE); GLUCOSE, URINE (UA) NEGATIVE (NEGATIVE); KETONES,URINE NEGATIVE (NEGATIVE); LEUKOCYTE ESTERASE ,URINE MODERATE (NEGATIVE); NITRATE,URINE POSITIVE (NEGATIVE); OCCULT BLOOD,URINE MODERATE (NEGATIVE); PH,URINE 5.5 (5.0-8.0); PROTEIN,URINE POS 1+ (NEGATIVE); UROBILINOGEN,URINE 0.2 mg/dL (<=1.0)
[2020-01-25 16:00] LABS: BACTERIA,URINE Many /HPF (None Seen); YEAST,URINE Many /HPF (None Seen)
[2020-01-25 16:03] LABS: SQUAMOUS EPITHELIAL CELL,UR Rare /LPF (None Seen)
[2020-01-25 16:15] VITALS: BP 136/86
== END 2020-01-25 16:36 | disposition home or self-care (01) ==
LOC: EMS 12:48
DX: T83.018A Breakdown (mechanical) of other urinary catheter, initial encounter (principal); N39.0 Urinary tract infection, site not specified; E11.9 Type 2 diabetes mellitus without complications; E78.00 Pure hypercholesterolemia, unspecified; I10 Essential (primary) hypertension; Z79.899 Other long term (current) drug therapy; Z79.84 Long term (current) use of oral hypoglycemic drugs; Y84.6 Urinary catheterization as the cause of abnormal reaction of the patient, or of later complication, without mention of misadventure at the time of the procedure
CPT/HCPCS: 51702

== ENCOUNTER 2020-02-04 06:38 | Emergency (ER) | payer MEDICAID ==
[~2020-02-04] VITALS: Ht 165.1 cm; Wt 90.9 kg
[2020-02-04] MEDS ORDERED: HYDROmorphone 2 MG/ML SYRINGE IVP ONE (08:00)
[2020-02-04] MEDS ORDERED: ONDANSETRON HCL 4 MG/2 ML VIAL IVP ONE (08:00)
[2020-02-04 08:38] LABS: BASOPHILS % (AUTO) 0.6 % (0.0-2.0); EOSINOPHILS % (AUTO) 1.2 % (1.0-6.0); HEMATOCRIT 46.8 % (41-53); HEMOGLOBIN 15.9 g/dL (13.5-17.5); LYMPHOCYTES # (AUTO) 1.4 K/uL (1.0-4.8); LYMPHOCYTES % (AUTO) 16.7 % (22.0-44.0); MEAN CORPUSCULAR HEMOGLOBIN 34.4 pg (26.0-34.0); MEAN CORPUSCULAR VOLUME 101 fL (80-100); MONOCYTES # (AUTO) 0.6 K/uL (0.1-1.0); MONOCYTES % (AUTO) 7.5 % (2.0-9.0); PLATELET COUNT (AUTO) 224 K/uL (150-450); RED BLOOD CELL COUNT(AUTO) 4.62 MIL/uL (4.50-5.90)
[2020-02-04 08:39] LABS: COVID AG,FIA SOURCE NASOPHARYNGEAL
[2020-02-04 08:48] LABS: CALCIUM, TOTAL 9.5 mg/dL (8.8-10.5); CREATININE 1.97 mg/dL (0.60-1.30); POTASSIUM 4.9 mmol/L (3.5-5.1)
[2020-02-04 09:09] LABS: LACTIC ACID 1.3 mmol/L (0.4-2.0)
[2020-02-04 09:16] LABS: ALBUMIN 4.1 g/dL (3.4-5.0); BILIRUBIN,TOTAL 0.5 mg/dL (0.1-1.0); MAGNESIUM 2.1 mg/dL (1.80-2.40)
[2020-02-04] MEDS ORDERED: CefTRIAXone 1 GM/DEXTROSE 50 ML IV ONE (10:45)
[2020-02-04 11:29] LABS: APPEARANCE,URINE CLEAR (CLEAR); BILIRUBIN,URINE NEGATIVE (NEGATIVE); GLUCOSE, URINE (UA) 250 mg/dL (NEGATIVE); KETONES,URINE NEGATIVE (NEGATIVE); LEUKOCYTE ESTERASE ,URINE NEGATIVE (NEGATIVE); NITRATE,URINE NEGATIVE (NEGATIVE); OCCULT BLOOD,URINE NEGATIVE (NEGATIVE); PH,URINE 5.5 (5.0-8.0); PROTEIN,URINE TRACE (NEGATIVE); UROBILINOGEN,URINE 0.2 mg/dL (<=1.0)
[2020-02-04 11:48] LABS: BACTERIA,URINE None Seen /HPF (None Seen); RBC,URINE None Seen /HPF (0-2); SQUAMOUS EPITHELIAL CELL,UR Few /LPF (None Seen)
[2020-02-04 13:00] VITALS: BP 123/71
== END 2020-02-04 13:07 | disposition home or self-care (01) ==
LOC: EMS 06:40
DX: K59.00 Constipation, unspecified (principal); R10.84 Generalized abdominal pain; N39.0 Urinary tract infection, site not specified; E86.0 Dehydration; I10 Essential (primary) hypertension; E78.00 Pure hypercholesterolemia, unspecified; E11.9 Type 2 diabetes mellitus without complications; Z79.899 Other long term (current) drug therapy; Z79.82 Long term (current) use of aspirin; Z20.828 Contact with and (suspected) exposure to other viral communicable diseases
CPT/HCPCS: 36415; 71045; 74176; 80053; 81001; 82550; 82962; 83605; 83690; 83735; 84484; 85025; 87040; 87086; 87426; 93005; 96365; 96375; 99285; J0696; J1170; J2405; 51702

== ENCOUNTER 2020-03-08 07:12 | Emergency (ER) | payer MEDICAID ==
[~2020-03-08] VITALS: Ht 165.1 cm; Wt 86.4 kg
[~2020-03-08 07:12] MED LIST changes: -LISI-661 PO; +LISI-893 PO
[2020-03-08 07:38] VITALS: BP 146/86
[2020-03-08 07:53] LABS: GLUCOSE,POINT OF CARE 168 MG/DL (70-110)
== END 2020-03-08 09:06 | disposition home or self-care (01) ==
LOC: EMS 07:21
DX: T83.028A Displacement of other urinary catheter, initial encounter (principal); I10 Essential (primary) hypertension; E11.9 Type 2 diabetes mellitus without complications; E78.00 Pure hypercholesterolemia, unspecified; Z79.899 Other long term (current) drug therapy; Z79.82 Long term (current) use of aspirin; Y92.89 Other specified places as the place of occurrence of the external cause
CPT/HCPCS: 51702

== ENCOUNTER 2020-03-15 06:34 | Emergency (ER) | payer MEDICAID ==
[~2020-03-15] VITALS: Ht 165.1 cm; Wt 84.1 kg
[2020-03-15 07:59] LABS: APPEARANCE,URINE CLOUDY (CLEAR); BILIRUBIN,URINE NEGATIVE (NEGATIVE); GLUCOSE, URINE (UA) NEGATIVE (NEGATIVE); KETONES,URINE NEGATIVE (NEGATIVE); LEUKOCYTE ESTERASE ,URINE SMALL (NEGATIVE); NITRATE,URINE POSITIVE (NEGATIVE); OCCULT BLOOD,URINE MODERATE (NEGATIVE); PH,URINE 5.5 (5.0-8.0); PROTEIN,URINE NEGATIVE (NEGATIVE); UROBILINOGEN,URINE 0.2 mg/dL (<=1.0)
[2020-03-15 08:10] LABS: BACTERIA,URINE Many /HPF (None Seen)
[2020-03-15 08:20] VITALS: BP 118/72
== END 2020-03-15 08:45 | disposition home or self-care (01) ==
LOC: EMS 06:36
DX: N39.0 Urinary tract infection, site not specified (principal); E11.9 Type 2 diabetes mellitus without complications; E78.00 Pure hypercholesterolemia, unspecified; I10 Essential (primary) hypertension; Z79.82 Long term (current) use of aspirin; Z79.899 Other long term (current) drug therapy
CPT/HCPCS: 87086; 99283

== ENCOUNTER 2020-03-20 22:28 | Emergency (ER) | payer MEDICAID ==
[~2020-03-20] VITALS: Ht 165.1 cm; Wt 86.4 kg
[2020-03-21 03:00] VITALS: BP 118/75
== END 2020-03-21 03:00 | disposition home or self-care (01) ==
LOC: EMS 22:28
DX: T83.031A Leakage of indwelling urethral catheter, initial encounter (principal); I10 Essential (primary) hypertension; E11.9 Type 2 diabetes mellitus without complications; E78.00 Pure hypercholesterolemia, unspecified; Z79.4 Long term (current) use of insulin; Z79.899 Other long term (current) drug therapy
CPT/HCPCS: 51702; 99284; Z7502

== ENCOUNTER 2020-04-07 09:01 | Emergency (ER) | payer MEDICAID ==
[~2020-04-07] VITALS: Ht 172.7 cm; Wt 84.1 kg
[~2020-04-07 09:01] MED LIST changes: +ASPI-1450 PO; -ASPI-728 PO
[2020-04-07 10:30] VITALS: BP 128/84
== END 2020-04-07 11:01 | disposition home or self-care (01) ==
LOC: EMS 09:01
DX: T83.091A Other mechanical complication of indwelling urethral catheter, initial encounter (principal); E11.9 Type 2 diabetes mellitus without complications; E78.00 Pure hypercholesterolemia, unspecified; I10 Essential (primary) hypertension; Y84.6 Urinary catheterization as the cause of abnormal reaction of the patient, or of later complication, without mention of misadventure at the time of the procedure; Y73.3 Surgical instruments, materials and gastroenterology and urology devices (including sutures) associated with adverse incidents
CPT/HCPCS: 51702; 99284; Z7502

== ENCOUNTER 2020-04-19 03:22 | Emergency (ER) | payer MEDICAID ==
[~2020-04-19] VITALS: Ht 162.6 cm; Wt 109.1 kg
[2020-04-19 04:29] LABS: CALCIUM, TOTAL 9.8 mg/dL (8.8-10.5); CREATININE 1.71 mg/dL (0.60-1.30); POTASSIUM 4.7 mmol/L (3.5-5.1)
[2020-04-19 04:35] LABS: ALBUMIN 4.1 g/dL (3.4-5.0); BILIRUBIN,TOTAL 0.5 mg/dL (0.1-1.0)
[2020-04-19 04:42] LABS: BASOPHILS % (AUTO) 1.4 % (0.0-2.0); EOSINOPHILS % (AUTO) 2.1 % (1.0-6.0); HEMATOCRIT 43.9 % (41-53); HEMOGLOBIN 15.5 g/dL (13.5-17.5); LYMPHOCYTES # (AUTO) 1.9 K/uL (1.0-4.8); LYMPHOCYTES % (AUTO) 21.7 % (22.0-44.0); MEAN CORPUSCULAR HEMOGLOBIN 34.9 pg (26.0-34.0); MEAN CORPUSCULAR HGB CONC 35.4 G/dL (31.0-37.0); MEAN CORPUSCULAR VOLUME 99 fL (80-100); MONOCYTES # (AUTO) 0.9 K/uL (0.1-1.0); MONOCYTES % (AUTO) 10.2 % (2.0-9.0); NEUTROPHILS # (AUTO) 5.5 K/uL (1.8-7.7); NEUTROPHILS % (AUTO) 64.6 % (40.0-70.0); PLATELET COUNT (AUTO) 199 K/uL (150-450); RED BLOOD CELL COUNT(AUTO) 4.45 MIL/uL (4.50-5.90); RED CELL DISTRIBUTION WIDTH 13.1 % (11.5-14.5)
[2020-04-19 04:44] LABS: APPEARANCE,URINE CLEAR (CLEAR); BILIRUBIN,URINE NEGATIVE (NEGATIVE); GLUCOSE, URINE (UA) NEGATIVE (NEGATIVE); KETONES,URINE NEGATIVE (NEGATIVE); LEUKOCYTE ESTERASE ,URINE SMALL (NEGATIVE); NITRATE,URINE NEGATIVE (NEGATIVE); OCCULT BLOOD,URINE NEGATIVE (NEGATIVE); PROTEIN,URINE NEGATIVE (NEGATIVE); UROBILINOGEN,URINE 0.2 mg/dL (<=1.0)
[2020-04-19 04:54] LABS: BACTERIA,URINE Few /HPF (None Seen); RBC,URINE 0-2 /HPF (0-2); WBC,URINE 26-50 /HPF (0-5)
[2020-04-19] MEDS ORDERED: LEVOFLOXACIN 250 MG TABLET PO ONE (05:00)
[2020-04-19 05:56] VITALS: BP 141/83
== END 2020-04-19 06:08 | disposition home or self-care (01) ==
LOC: EMS 03:24
DX: N39.0 Urinary tract infection, site not specified (principal); R33.9 Retention of urine, unspecified; M79.89 Other specified soft tissue disorders; E11.9 Type 2 diabetes mellitus without complications; E78.00 Pure hypercholesterolemia, unspecified; I10 Essential (primary) hypertension; Z79.899 Other long term (current) drug therapy; Z79.4 Long term (current) use of insulin
CPT/HCPCS: 51702; 87086; 99284

== ENCOUNTER 2020-06-01 16:28 | Emergency (ER) | payer MEDICAID ==
[~2020-06-01] VITALS: Ht 165.1 cm; Wt 93.2 kg
[2020-06-01 18:14] LABS: BASOPHILS % (AUTO) 0.5 % (0.0-2.0); EOSINOPHILS % (AUTO) 1.8 % (1.0-6.0); HEMATOCRIT 48.7 % (41-53); HEMOGLOBIN 16.9 g/dL (13.5-17.5); LYMPHOCYTES # (AUTO) 1.5 K/uL (1.0-4.8); LYMPHOCYTES % (AUTO) 18.2 % (22.0-44.0); MEAN CORPUSCULAR HEMOGLOBIN 34.9 pg (26.0-34.0); MEAN CORPUSCULAR HGB CONC 34.7 G/dL (31.0-37.0); MEAN CORPUSCULAR VOLUME 101 fL (80-100); MONOCYTES % (AUTO) 12.6 % (2.0-9.0); NEUTROPHILS # (AUTO) 5.5 K/uL (1.8-7.7); NEUTROPHILS % (AUTO) 66.9 % (40.0-70.0); PLATELET COUNT (AUTO) 200 K/uL (150-450); RED BLOOD CELL COUNT(AUTO) 4.84 MIL/uL (4.50-5.90)
[2020-06-01 18:25] LABS: CALCIUM, TOTAL 9.8 mg/dL (8.8-10.5); CREATININE 1.85 mg/dL (0.60-1.30)
[2020-06-01 18:30] LABS: ALBUMIN 3.9 g/dL (3.4-5.0); BILIRUBIN,TOTAL 0.6 mg/dL (0.1-1.0); TOTAL PROTEIN, SERUM 8.6 g/dL (6.4-8.2)
[2020-06-01] MEDS ORDERED: INSU100I26 SQ (21:21)
[2020-06-01 21:43] LABS: GLUCOSE,POINT OF CARE 185 MG/DL (70-110)
[2020-06-01 22:22] VITALS: BP 127/76
== END 2020-06-01 23:06 | disposition home or self-care (01) ==
LOC: EMS 16:34
DX: R00.2 Palpitations (principal); M79.661 Pain in right lower leg; E11.9 Type 2 diabetes mellitus without complications; E78.00 Pure hypercholesterolemia, unspecified; I10 Essential (primary) hypertension; Z79.82 Long term (current) use of aspirin; Z79.899 Other long term (current) drug therapy
CPT/HCPCS: 93005; 93970; 99285; 36415-L1; 36415-TC; 71045-TC

== ENCOUNTER 2020-06-08 17:54 | Emergency (ER) | payer MEDICAID ==
[~2020-06-08] VITALS: Ht 165.1 cm; Wt 90.9 kg
[~2020-06-08 17:54] MED LIST changes: +INSU100I26 SQ; -INSU3INS3 SQ
[2020-06-08 19:13] VITALS: BP 147/91
[2020-06-08] MEDS ORDERED: ONDANSETRON HCL 4 MG/2 ML VIAL IVP ONE (19:30)
[2020-06-08 20:10] LABS: BASOPHILS % (AUTO) 0.5 % (0.0-2.0); EOSINOPHILS % (AUTO) 2.4 % (1.0-6.0); HEMATOCRIT 45.9 % (41-53); HEMOGLOBIN 15.7 g/dL (13.5-17.5); LYMPHOCYTES # (AUTO) 2.6 K/uL (1.0-4.8); LYMPHOCYTES % (AUTO) 28.1 % (22.0-44.0); MEAN CORPUSCULAR HEMOGLOBIN 34.2 pg (26.0-34.0); MEAN CORPUSCULAR HGB CONC 34.3 G/dL (31.0-37.0); MEAN CORPUSCULAR VOLUME 100 fL (80-100); MONOCYTES # (AUTO) 0.9 K/uL (0.1-1.0); MONOCYTES % (AUTO) 9.2 % (2.0-9.0); NEUTROPHILS # (AUTO) 5.6 K/uL (1.8-7.7); NEUTROPHILS % (AUTO) 59.8 % (40.0-70.0); PLATELET COUNT (AUTO) 205 K/uL (150-450); RED CELL DISTRIBUTION WIDTH 12.6 % (11.5-14.5)
[2020-06-08 20:26] LABS: PROTHROMBIN TIME 10.8 SEC (9.4-11.6)
[2020-06-08 20:32] LABS: CALCIUM, TOTAL 9.5 mg/dL (8.8-10.5); CREATININE 1.49 mg/dL (0.60-1.30); POTASSIUM 4.7 mmol/L (3.5-5.1)
[2020-06-08 20:54] LABS: ALBUMIN 4.1 g/dL (3.4-5.0); BILIRUBIN,TOTAL 0.4 mg/dL (0.1-1.0); TOTAL PROTEIN, SERUM 8.1 g/dL (6.4-8.2)
== END 2020-06-08 22:05 | disposition home or self-care (01) ==
LOC: EMS 17:57
DX: R00.2 Palpitations (principal); R42 Dizziness and giddiness; E11.9 Type 2 diabetes mellitus without complications; E78.00 Pure hypercholesterolemia, unspecified; I10 Essential (primary) hypertension; Z79.899 Other long term (current) drug therapy; Z79.82 Long term (current) use of aspirin
CPT/HCPCS: 36415; 71045; 80053; 82550; 83880; 84484; 85025; 85610; 85730; 93005; 96374; 99285; J2405

== ENCOUNTER 2020-08-13 23:14 | Emergency (ER) | payer MEDICAID ==
[~2020-08-13] VITALS: Ht 162.6 cm; Wt 93.2 kg
[2020-08-14 02:37] LABS: CALCIUM, TOTAL 9.2 mg/dL (8.8-10.5); CREATININE 1.66 mg/dL (0.60-1.30); POTASSIUM 4.9 mmol/L (3.5-5.1)
[2020-08-14 02:42] LABS: BASOPHILS % (AUTO) 0.7 % (0.0-2.0); HEMATOCRIT 46.3 % (41-53); HEMOGLOBIN 15.6 g/dL (13.5-17.5); LYMPHOCYTES # (AUTO) 2.1 K/uL (1.0-4.8); LYMPHOCYTES % (AUTO) 23.1 % (22.0-44.0); MEAN CORPUSCULAR HEMOGLOBIN 33.8 pg (26.0-34.0); MEAN CORPUSCULAR HGB CONC 33.6 G/dL (31.0-37.0); MEAN CORPUSCULAR VOLUME 101 fL (80-100); MONOCYTES # (AUTO) 0.9 K/uL (0.1-1.0); MONOCYTES % (AUTO) 10.2 % (2.0-9.0); NEUTROPHILS # (AUTO) 5.8 K/uL (1.8-7.7); PLATELET COUNT (AUTO) 246 K/uL (150-450); RED CELL DISTRIBUTION WIDTH 13.4 % (11.5-14.5)
[2020-08-14 02:43] LABS: ALBUMIN 3.6 g/dL (3.4-5.0); BILIRUBIN,TOTAL 0.3 mg/dL (0.1-1.0); TOTAL PROTEIN, SERUM 7.6 g/dL (6.4-8.2)
[2020-08-14 02:50] LABS: PROTHROMBIN TIME 10.4 SEC (9.4-11.6)
[2020-08-14 04:14] LABS: APPEARANCE,URINE CLOUDY (CLEAR); BILIRUBIN,URINE PRELIM. POSITIVE (NEGATIVE); GLUCOSE, URINE (UA) NEGATIVE (NEGATIVE); KETONES,URINE TRACE mg/dL (NEGATIVE); LEUKOCYTE ESTERASE ,URINE MODERATE (NEGATIVE); NITRATE,URINE POSITIVE (NEGATIVE); OCCULT BLOOD,URINE LARGE (NEGATIVE); PROTEIN,URINE SEE CONFIRM (NEGATIVE)
[2020-08-14 04:20] LABS: BACTERIA,URINE Few /HPF (None Seen); RBC,URINE >100 /HPF (0-2); SQUAMOUS EPITHELIAL CELL,UR None Seen /LPF (None Seen)
[2020-08-14 04:21] LABS: SULFOSALICYLIC ACID,URINE 1+ (Negative)
[2020-08-14] MEDS ORDERED: CEPHALEXIN MONOHYDRATE 500 MG CAPSULE PO ONE (04:45)
[2020-08-14 05:00] VITALS: BP 118/68
== END 2020-08-14 05:10 | disposition home or self-care (01) ==
LOC: EMS 23:18
DX: N39.0 Urinary tract infection, site not specified (principal)
CPT/HCPCS: 74176; 80053; 81001; 81002; 82550; 83690; 85025; 85610; 85730; 87077; 87086; 87186; 99285

== ENCOUNTER 2020-10-03 22:06 | Emergency (ER) | payer MEDICAID ==
[~2020-10-03] VITALS: Ht 162.6 cm; Wt 91.0 kg
[2020-10-03 22:35] LABS: GLUCOMETER DEV NAME(LOC) AHU.; GLUCOSE,POINT OF CARE 158 MG/DL (70-110)
[2020-10-04 01:44] LABS: APPEARANCE,URINE CLOUDY (CLEAR); BILIRUBIN,URINE NEGATIVE (NEGATIVE); GLUCOSE, URINE (UA) NEGATIVE (NEGATIVE); KETONES,URINE NEGATIVE (NEGATIVE); LEUKOCYTE ESTERASE ,URINE MODERATE (NEGATIVE); NITRATE,URINE POSITIVE (NEGATIVE); OCCULT BLOOD,URINE SMALL (NEGATIVE); PROTEIN,URINE NEGATIVE (NEGATIVE); UROBILINOGEN,URINE 0.2 mg/dL (<=1.0)
[2020-10-04 01:57] LABS: BACTERIA,URINE Many /HPF (None Seen); WBC,URINE 51-100 /HPF (0-5)
[2020-10-04] MEDS ORDERED: CEPHALEXIN MONOHYDRATE 500 MG CAPSULE PO ONE (02:15)
[2020-10-04 02:55] VITALS: BP 121/60
== END 2020-10-04 02:55 | disposition home or self-care (01) ==
LOC: EMS 22:09
DX: N39.0 Urinary tract infection, site not specified (principal); L25.9 Unspecified contact dermatitis, unspecified cause; Z79.899 Other long term (current) drug therapy; Z79.82 Long term (current) use of aspirin
CPT/HCPCS: 81001; 82962; 87086; 99283

== ENCOUNTER 2020-12-18 07:09 | Emergency (ER) | payer MEDICAID ==
[~2020-12-18] VITALS: Ht 162.6 cm; Wt 91.0 kg
[2020-12-18 08:31] LABS: GLUCOMETER DEV NAME(LOC) ERT.5; GLUCOSE,POINT OF CARE 200 MG/DL (70-110)
[2020-12-18 09:16] LABS: APPEARANCE,URINE CLOUDY (CLEAR); BILIRUBIN,URINE NEGATIVE (NEGATIVE); GLUCOSE, URINE (UA) NEGATIVE (NEGATIVE); KETONES,URINE NEGATIVE (NEGATIVE); LEUKOCYTE ESTERASE ,URINE SMALL (NEGATIVE); NITRATE,URINE NEGATIVE (NEGATIVE); OCCULT BLOOD,URINE NEGATIVE (NEGATIVE); PROTEIN,URINE NEGATIVE (NEGATIVE); UROBILINOGEN,URINE 0.2 mg/dL (<=1.0)
[2020-12-18 09:18] LABS: BACTERIA,URINE None Seen /HPF (None Seen); RBC,URINE None Seen /HPF (0-2)
[2020-12-18 09:19] LABS: FINE GRANULAR CASTS,URINE 0-2 /LPF (None Seen)
[2020-12-18 10:02] VITALS: BP 145/82
== END 2020-12-18 10:03 | disposition home or self-care (01) ==
LOC: EMS 07:11
DX: T83.098A Other mechanical complication of other urinary catheter, initial encounter (principal); Y84.6 Urinary catheterization as the cause of abnormal reaction of the patient, or of later complication, without mention of misadventure at the time of the procedure; E11.9 Type 2 diabetes mellitus without complications; I10 Essential (primary) hypertension; E78.00 Pure hypercholesterolemia, unspecified
CPT/HCPCS: 81001; 82962; 99283

== ENCOUNTER 2021-04-18 19:18 | Emergency (ER) | payer OTHER, MEDICAID ==
[~2021-04-18] VITALS: Ht 162.6 cm; Wt 91.0 kg
[2021-04-18 19:32] VITALS: BP 115/88
[2021-04-18] MEDS ORDERED: BACITRACIN 0.9 GM PACKET OINTMENT TP ONE (22:49)
== END 2021-04-19 00:50 | disposition home or self-care (01) ==
LOC: EMS 19:23
DX: E11.621 Type 2 diabetes mellitus with foot ulcer (principal); L97.519 Non-pressure chronic ulcer of other part of right foot with unspecified severity; I10 Essential (primary) hypertension; Z79.899 Other long term (current) drug therapy
CPT/HCPCS: 99281; 99282; Z7502; Z7610

== ENCOUNTER 2021-07-01 20:55 | Emergency (ER) | payer MEDICARE, MEDICAID ==
[~2021-07-01] VITALS: Ht 162.6 cm; Wt 94.0 kg
[2021-07-01] MEDS ORDERED: OXYB5TAB20 PO (21:51)
[2021-07-02 00:12] VITALS: BP 145/96
== END 2021-07-02 03:48 | disposition home or self-care (01) ==
LOC: EMS 21:06
DX: T83.198A Other mechanical complication of other urinary devices and implants, initial encounter (principal); E11.9 Type 2 diabetes mellitus without complications; E78.00 Pure hypercholesterolemia, unspecified; I10 Essential (primary) hypertension; Z87.448 Personal history of other diseases of urinary system; Z98.890 Other specified postprocedural states; Y84.6 Urinary catheterization as the cause of abnormal reaction of the patient, or of later complication, without mention of misadventure at the time of the procedure
CPT/HCPCS: 99281; Z7502

== ENCOUNTER 2021-07-31 11:21 | Emergency (ER) | payer MEDICARE, MEDICAID ==
[~2021-07-31] VITALS: Ht 167.6 cm; Wt 90.9 kg
[~2021-07-31 11:21] MED LIST changes: -ASPI-1450 PO; +OXYB5TAB20 PO; -SULF1TAB42 PO
[2021-07-31] MEDS ORDERED: GABA-1181 PO (12:43)
[2021-07-31] MEDS ORDERED: ATOR20TA65 PO (12:43)
[2021-07-31] MEDS ORDERED: ALBU8HFA IH (12:44)
[2021-07-31] MEDS ORDERED: ACETAMINOPHEN 500 MG TABLET PO ONE (12:45)
[2021-07-31 14:16] LABS: APPEARANCE,URINE CLEAR (CLEAR); BILIRUBIN,URINE NEGATIVE (NEGATIVE); GLUCOSE, URINE (UA) 300-500 mg/dL (NEGATIVE); KETONES,URINE NEGATIVE (NEGATIVE); LEUKOCYTE ESTERASE ,URINE LARGE (NEGATIVE); OCCULT BLOOD,URINE NEGATIVE (NEGATIVE); PROTEIN,URINE TRACE mg/dL (NEGATIVE); SPECIFIC GRAVITIY, URINE 1.021 (1.003-1.030); UROBILINOGEN,URINE <=1.0 mg/dL (<=1.0)
[2021-07-31 14:54] LABS: NITRATE,URINE POSITIVE (NEGATIVE)
[2021-07-31 14:55] LABS: BACTERIA,URINE Many /HPF (None Seen); RBC,URINE 0-2 /HPF (0-2)
[2021-07-31] MEDS ORDERED: SULFAMETHOX/TRIMETH DS 800-160 MG/TABLET PO ONE (15:15)
[2021-07-31] MEDS ORDERED: SULF-261 PO (15:27)
[2021-07-31 15:55] VITALS: BP 155/81
== END 2021-07-31 16:03 | disposition home or self-care (01) ==
LOC: EMS 11:21
DX: N39.0 Urinary tract infection, site not specified (principal); N43.3 Hydrocele, unspecified; I10 Essential (primary) hypertension; E11.9 Type 2 diabetes mellitus without complications; E78.00 Pure hypercholesterolemia, unspecified; Z79.899 Other long term (current) drug therapy
CPT/HCPCS: 76870; 81001; 87086; 99284; Z7502; Z7610

== ENCOUNTER 2021-08-12 18:24 | Emergency (ER) | payer MEDICARE, MEDICAID ==
[~2021-08-12] VITALS: Ht 162.6 cm; Wt 90.9 kg
[~2021-08-12 18:24] MED LIST changes: +ALBU8HFA IH; +ATOR20TA65 PO; +GABA-1181 PO; -GABA-1201 PO; +SULF-261 PO
[2021-08-12 19:37] LABS: BASOPHILS % (AUTO) 0.8 % (0.0-2.0); EOSINOPHILS % (AUTO) 2.2 % (1.0-6.0); HEMATOCRIT 42.9 % (41-53); HEMOGLOBIN 14.7 g/dL (13.5-17.5); LYMPHOCYTES # (AUTO) 2.1 K/uL (1.0-4.8); LYMPHOCYTES % (AUTO) 32.2 % (22.0-44.0); MEAN CORPUSCULAR HEMOGLOBIN 34.3 pg (26.0-34.0); MEAN CORPUSCULAR HGB CONC 34.4 G/dL (31.0-37.0); MEAN CORPUSCULAR VOLUME 100 fL (80-100); MONOCYTES # (AUTO) 0.6 K/uL (0.1-1.0); MONOCYTES % (AUTO) 10.1 % (2.0-9.0); NEUTROPHILS # (AUTO) 3.5 K/uL (1.8-7.7); NEUTROPHILS % (AUTO) 54.7 % (40.0-70.0); PLATELET COUNT (AUTO) 207 K/uL (150-450); RED BLOOD CELL COUNT(AUTO) 4.29 MIL/uL (4.50-5.90); RED CELL DISTRIBUTION WIDTH 13.5 % (11.5-14.5)
[2021-08-12 19:48] LABS: CALCIUM, TOTAL 8.9 mg/dL (8.8-10.5); CREATININE 1.73 mg/dL (0.60-1.30); POTASSIUM 4.6 mmol/L (3.5-5.1)
[2021-08-12 19:50] LABS: PROTHROMBIN TIME 10.6 SEC (9.4-11.6)
[2021-08-12 19:51] LABS: ALBUMIN 3.7 g/dL (3.4-5.0); BILIRUBIN,TOTAL 0.3 mg/dL (0.1-1.0); TOTAL PROTEIN, SERUM 7.2 g/dL (6.4-8.2)
[2021-08-12 21:38] VITALS: BP 119/63
== END 2021-08-12 22:25 | disposition home or self-care (01) ==
LOC: EMS 18:26
DX: R07.89 Other chest pain (principal); E78.5 Hyperlipidemia, unspecified; I10 Essential (primary) hypertension; E11.9 Type 2 diabetes mellitus without complications; Z87.438 Personal history of other diseases of male genital organs; Z98.890 Other specified postprocedural states
CPT/HCPCS: 71045; 80053; 83880; 84484; 85025; 85610; 85730; 93005; 99285; 36415-L1; 36415-TC

== ENCOUNTER → 2021-09-19 | Outpatient (CLI) | payer MEDICARE, MEDICAID | END | disposition home or self-care (01) | LOC: RADPV 09:06 | PROVIDERS: ATTEND Internal Medicine | DX: M79.606 Pain in leg, unspecified (principal); R22.43 Localized swelling, mass and lump, lower limb, bilateral | CPT/HCPCS: 93970 ==

== ENCOUNTER 2021-12-12 14:19 | Emergency (ER) | payer MEDICARE, MEDICAID ==
[~2021-12-12] VITALS: Ht 175.3 cm; Wt 81.8 kg
[2021-12-12 14:36] VITALS: BP 121/86
== END 2021-12-12 15:41 | disposition home or self-care (01) ==
LOC: EMS 14:44
DX: L30.9 Dermatitis, unspecified (principal); B35.1 Tinea unguium; E11.9 Type 2 diabetes mellitus without complications; E78.00 Pure hypercholesterolemia, unspecified; I10 Essential (primary) hypertension; Z98.890 Other specified postprocedural states; Z87.448 Personal history of other diseases of urinary system
CPT/HCPCS: 99281; 99283

== ENCOUNTER 2021-12-22 06:56 | Emergency (ER) | payer MEDICARE, MEDICAID ==
[~2021-12-22] VITALS: Ht 167.6 cm; Wt 95.5 kg
[2021-12-22 07:18] LABS: COVID AG,FIA SOURCE NASAL SWAB
[2021-12-22] MEDS ORDERED: INSULIN REGULAR, HUMAN 100 UNITS/ML IVP ONE (07:45)
[2021-12-22] MEDS ORDERED: SODIUM CHLORIDE 0.9% 1,000 ML IV ONE ×2 (07:45→09:15)
[2021-12-22 08:00] LABS: BASOPHILS % (AUTO) 0.4 % (0.0-2.0); EOSINOPHILS % (AUTO) 1.9 % (1.0-6.0); HEMATOCRIT 45.1 % (41-53); HEMOGLOBIN 15.7 g/dL (13.5-17.5); LYMPHOCYTES # (AUTO) 1.8 K/uL (1.0-4.8); LYMPHOCYTES % (AUTO) 17.8 % (22.0-44.0); MEAN CORPUSCULAR HEMOGLOBIN 34.6 pg (26.0-34.0); MEAN CORPUSCULAR HGB CONC 34.8 G/dL (31.0-37.0); MEAN CORPUSCULAR VOLUME 99 fL (80-100); MONOCYTES % (AUTO) 10.4 % (2.0-9.0); NEUTROPHILS # (AUTO) 6.9 K/uL (1.8-7.7); NEUTROPHILS % (AUTO) 69.5 % (40.0-70.0); PLATELET COUNT (AUTO) 237 K/uL (150-450); RED BLOOD CELL COUNT(AUTO) 4.54 MIL/uL (4.50-5.90); RED CELL DISTRIBUTION WIDTH 13.2 % (11.5-14.5)
[2021-12-22 08:10] LABS: INFLUENZA TYPE A NEGATIVE FOR TYPE A (NEGATIVE); INFLUENZA TYPE B NEGATIVE FOR TYPE B (NEGATIVE)
[2021-12-22 08:15] LABS: ALBUMIN 3.3 g/dL (3.4-5.0); BILIRUBIN,TOTAL 0.6 mg/dL (0.1-1.0); CALCIUM, TOTAL 9.4 mg/dL (8.8-10.5); CREATININE 1.88 mg/dL (0.60-1.30); POTASSIUM 4.7 mmol/L (3.5-5.1)
[2021-12-22 08:21] LABS: GLUCOMETER DEV NAME(LOC) ERT.5; GLUCOSE,POINT OF CARE 400 MG/DL (70-110)
[2021-12-22] MEDS ORDERED: DEXAMETHASONE SOD PHOS 4 MG/ML VIAL IM ONE (09:15)
[2021-12-22] MEDS ORDERED: PENICILLIN G BENZATHINE LA 1,200,000 UNITS/2 ML SYRINGE IM ONE (09:15)
[2021-12-22 09:59] VITALS: BP 141/80
[2021-12-22 10:01] LABS: GLUCOSE,POINT OF CARE 276 MG/DL (70-110)
== END 2021-12-22 10:09 | disposition home or self-care (01) ==
LOC: EMS 07:00
DX: J02.0 Streptococcal pharyngitis (principal); E11.65 Type 2 diabetes mellitus with hyperglycemia; E78.00 Pure hypercholesterolemia, unspecified; I10 Essential (primary) hypertension; Z87.448 Personal history of other diseases of urinary system; Z98.890 Other specified postprocedural states; Z20.822 Contact with and (suspected) exposure to COVID-19
CPT/HCPCS: 99284; 96374; 96361; 87426; 80053; 82962; 85025; 87430; 87804; 36415; 96372; J0561; J1100; J1815; J7030

== ENCOUNTER 2022-05-07 16:26 | Emergency (ER) | payer MEDICARE, MEDICAID ==
[~2022-05-07] VITALS: Ht 170.2 cm; Wt 100.0 kg
[~2022-05-07 16:26] MED LIST changes: -ALBU8HFA IH; -OXYB5TAB20 PO; -SULF-261 PO
[2022-05-07] MEDS ORDERED: OXYB5TAB20 PO (18:39)
[2022-05-07] MEDS ORDERED: GABA-533 PO (18:39)
[2022-05-07] MEDS ORDERED: PIPERACILLIN/TAZO 3.375 GM/D5W 50 ML IV ONE (18:45)
[2022-05-07 19:21] LABS: BASOPHILS % (AUTO) 0.4 % (0.0-2.0); EOSINOPHILS % (AUTO) 1.8 % (1.0-6.0); HEMATOCRIT 50.9 % (41-53); HEMOGLOBIN 17.4 g/dL (13.5-17.5); LYMPHOCYTES % (AUTO) 22.1 % (22.0-44.0); MEAN CORPUSCULAR HEMOGLOBIN 34.6 pg (26.0-34.0); MEAN CORPUSCULAR HGB CONC 34.2 G/dL (31.0-37.0); MEAN CORPUSCULAR VOLUME 101 fL (80-100); MONOCYTES # (AUTO) 1.2 K/uL (0.1-1.0); MONOCYTES % (AUTO) 13.6 % (2.0-9.0); NEUTROPHILS # (AUTO) 5.7 K/uL (1.8-7.7); NEUTROPHILS % (AUTO) 62.1 % (40.0-70.0); PLATELET COUNT (AUTO) 185 K/uL (150-450); RED BLOOD CELL COUNT(AUTO) 5.03 MIL/uL (4.50-5.90); RED CELL DISTRIBUTION WIDTH 13.5 % (11.5-14.5)
[2022-05-07 19:30] LABS: CALCIUM, TOTAL 10.2 mg/dL (8.8-10.5); CREATININE 1.63 mg/dL (0.60-1.30); POTASSIUM 4.2 mmol/L (3.5-5.1)
[2022-05-07 19:37] LABS: BILIRUBIN,TOTAL 0.8 mg/dL (0.1-1.0); TOTAL PROTEIN, SERUM 8.4 g/dL (6.4-8.2)
[2022-05-07 19:45] LABS: LACTIC ACID 0.6 mmol/L (0.4-2.0)
[2022-05-07 22:06] VITALS: BP 164/95
[2022-05-07] MEDS ORDERED: CLIN300C58 PO (22:42)
== END 2022-05-07 23:28 | disposition home or self-care (01) ==
LOC: EMS 16:42
DX: L03.115 Cellulitis of right lower limb (principal); E11.9 Type 2 diabetes mellitus without complications; E78.00 Pure hypercholesterolemia, unspecified; I10 Essential (primary) hypertension; Z98.890 Other specified postprocedural states
CPT/HCPCS: 99285; 96365; 93971; 80053; 83605; 85025; 87040; 36415; 73630; J2543

== ENCOUNTER 2022-05-22 22:01 | Emergency (ER) | payer MEDICARE, MEDICAID ==
[~2022-05-22] VITALS: Ht 165.1 cm; Wt 104.5 kg
[~2022-05-22 22:01] MED LIST changes: +CLIN300C58 PO; -GABA-1181 PO; +GABA-533 PO; +OXYB5TAB20 PO
[2022-05-22 22:21] LABS: GLUCOMETER DEV NAME(LOC) ERT.5; GLUCOSE,POINT OF CARE 264 MG/DL (70-110)
[2022-05-22] MEDS ORDERED: KETOROLAC TROMETHAMINE 60 MG/2 ML VIAL IM ONE (22:45)
[2022-05-22] MEDS ORDERED: METHOCARBAMOL 500 MG TABLET PO ONE (22:45)
[2022-05-22] MEDS ORDERED: KETOROLAC TROMETHAMINE 30 MG/ML VIAL IM ONE (22:45)
[2022-05-22 23:24] VITALS: BP 150/72
== END 2022-05-22 23:29 | disposition home or self-care (01) ==
LOC: EMS 22:01
DX: M62.838 Other muscle spasm (principal); E11.9 Type 2 diabetes mellitus without complications; E78.00 Pure hypercholesterolemia, unspecified; I10 Essential (primary) hypertension; Z98.890 Other specified postprocedural states
CPT/HCPCS: 99283; 82962; 96372; J1885

== ENCOUNTER 2022-07-01 01:16 | Emergency (ER) | payer MEDICARE, MEDICAID ==
[~2022-07-01] VITALS: Ht 165.1 cm; Wt 95.5 kg
[2022-07-01 02:51] LABS: APPEARANCE,URINE TURBID (CLEAR); BILIRUBIN,URINE NEGATIVE (NEGATIVE); GLUCOSE, URINE (UA) 150-200 mg/dL (NEGATIVE); KETONES,URINE NEGATIVE (NEGATIVE); LEUKOCYTE ESTERASE ,URINE LARGE (NEGATIVE); NITRATE,URINE NEGATIVE (NEGATIVE); OCCULT BLOOD,URINE MODERATE (NEGATIVE); PH,URINE 8.5 (5.0-8.0); PROTEIN,URINE >600,SEE CONFIRM mg/dL (NEGATIVE); SPECIFIC GRAVITIY, URINE 1.018 (1.003-1.030); UROBILINOGEN,URINE <=1.0 mg/dL (<=1.0)
[2022-07-01 03:02] LABS: BACTERIA,URINE Many /HPF (None Seen); SQUAMOUS EPITHELIAL CELL,UR None Seen /LPF (None Seen); SULFOSALICYLIC ACID,URINE 4+ (Negative)
[2022-07-01] MEDS ORDERED: CefTRIAXone SODIUM 1 GM/VIAL IM ONE (04:00)
[2022-07-01] MEDS ORDERED: LIDOCAINE/PF 1% 2 ML VIAL IM ONE (04:00)
[2022-07-01 04:14] VITALS: BP 167/82
== END 2022-07-01 04:25 | disposition home or self-care (01) ==
LOC: EMS 01:16
DX: T83.518A Infection and inflammatory reaction due to other urinary catheter, initial encounter (principal); N39.0 Urinary tract infection, site not specified; R33.9 Retention of urine, unspecified; E11.9 Type 2 diabetes mellitus without complications; E78.00 Pure hypercholesterolemia, unspecified; I10 Essential (primary) hypertension; Z79.899 Other long term (current) drug therapy; Y84.6 Urinary catheterization as the cause of abnormal reaction of the patient, or of later complication, without mention of misadventure at the time of the procedure
CPT/HCPCS: 99284; 51705; 81001; 81002; 87086; 87186; 96372; J0696; J3490

== ENCOUNTER 2022-09-19 12:32 | Emergency (ER) | payer MEDICARE, MEDICAID ==
[~2022-09-19] VITALS: Ht 165.1 cm; Wt 84.1 kg
[~2022-09-19 12:32] MED LIST changes: -GABA-533 PO; +GABA-534 PO
[2022-09-19 12:36] VITALS: TEMP 98.2
[2022-09-19] MEDS ORDERED: TERB250T90 PO (12:38)
[2022-09-19] MEDS ORDERED: LISI20TA24 PO (12:38)
[2022-09-19] MEDS ORDERED: SODIUM CHLORIDE 0.9% 1,000 ML IV ONE (13:00)
[2022-09-19 13:31] LABS: CALCIUM, TOTAL 9.5 mg/dL (8.8-10.5); CREATININE 2.02 mg/dL (0.60-1.30); POTASSIUM 4.7 mmol/L (3.5-5.1)
[2022-09-19] MEDS ORDERED: INSULIN REGULAR, HUMAN 100 UNITS/ML IVP ONE (13:45)
[2022-09-19 14:11] VITALS: BP 138/75; PULSE 83; RESP 20
[2022-09-19 14:56] LABS: GLUCOMETER DEV NAME(LOC) ER.6
== END 2022-09-19 15:10 | disposition home or self-care (01) ==
LOC: EMS 12:32
DX: E11.65 Type 2 diabetes mellitus with hyperglycemia (principal); R53.1 Weakness; E78.00 Pure hypercholesterolemia, unspecified; I10 Essential (primary) hypertension; Z98.890 Other specified postprocedural states
CPT/HCPCS: 99283; 96374; 96361; 80048; 82962; 36415; 82948; J7030

== ENCOUNTER 2022-10-19 18:35 | Emergency (ER) | payer MEDICARE, MEDICAID ==
[~2022-10-19] VITALS: Ht 165.1 cm; Wt 91.0 kg
[~2022-10-19 18:35] MED LIST changes: -CLIN300C58 PO; -LISI-893 PO; +LISI20TA24 PO; +TERB250T90 PO
[2022-10-20 02:00] VITALS: BP 143/95; PULSE 96; RESP 16; TEMP 97.3
== END 2022-10-20 03:08 | disposition home or self-care (01) ==
LOC: EMS 18:35
DX: T83.098A Other mechanical complication of other urinary catheter, initial encounter (principal); E11.9 Type 2 diabetes mellitus without complications; E78.00 Pure hypercholesterolemia, unspecified; I10 Essential (primary) hypertension; Z98.890 Other specified postprocedural states
CPT/HCPCS: 51702; 82962; 99284

== ENCOUNTER 2022-10-28 03:53 | Inpatient (IN) | payer MEDICARE, MEDICAID ==
[~2022-10-28] VITALS: Ht 165.1 cm; Wt 99.8 kg
[2022-10-28 04:43] LABS: BASOPHILS % (AUTO) 0.6 % (0.0-2.0); EOSINOPHILS % (AUTO) 2.5 % (1.0-6.0); HEMOGLOBIN 15.1 g/dL (13.5-17.5); LYMPHOCYTES # (AUTO) 1.6 K/uL (1.0-4.8); LYMPHOCYTES % (AUTO) 22.8 % (22.0-44.0); MEAN CORPUSCULAR HEMOGLOBIN 34.7 pg (26.0-34.0); MEAN CORPUSCULAR HGB CONC 34.2 G/dL (31.0-37.0); MEAN CORPUSCULAR VOLUME 101 fL (80-100); MONOCYTES # (AUTO) 0.8 K/uL (0.1-1.0); MONOCYTES % (AUTO) 11.4 % (2.0-9.0); NEUTROPHILS # (AUTO) 4.5 K/uL (1.8-7.7); NEUTROPHILS % (AUTO) 62.7 % (40.0-70.0); PLATELET COUNT (AUTO) 204 K/uL (150-450); RED BLOOD CELL COUNT(AUTO) 4.34 MIL/uL (4.50-5.90); RED CELL DISTRIBUTION WIDTH 13.7 % (11.5-14.5); WHITE BLOOD COUNT (AUTO) 7.2 K/uL (4.5-11.0)
[2022-10-28 04:49] LABS: APPEARANCE,URINE HAZY (CLEAR); BILIRUBIN,URINE NEGATIVE (NEGATIVE); COLOR,URINE LIGHT YELLOW (YELLOW); GLUCOSE, URINE (UA) >=1000 mg/dL (NEGATIVE); KETONES,URINE NEGATIVE (NEGATIVE); LEUKOCYTE ESTERASE ,URINE LARGE (NEGATIVE); NITRATE,URINE NEGATIVE (NEGATIVE); OCCULT BLOOD,URINE NEGATIVE (NEGATIVE); PROTEIN,URINE NEGATIVE (NEGATIVE); SPECIFIC GRAVITIY, URINE 1.025 (1.003-1.030); UROBILINOGEN,URINE <=1.0 mg/dL (<=1.0)
[2022-10-28 04:59] LABS: AMORPHOUS SEDIMENT,UR Moderate /LPF (None Seen); BACTERIA,URINE Rare /HPF (None Seen); RBC,URINE None Seen /HPF (0-2); SQUAMOUS EPITHELIAL CELL,UR Rare /LPF (None Seen); TRIPLE PHOSPHATE CRYSTAL,UR Moderate /LPF (None Seen)
[2022-10-28 05:00] LABS: ALANINE AMINOTRANSFERASE 20 U/L (12-78); ALBUMIN 3.6 g/dL (3.4-5.0); ALKALINE PHOSPHATASE 127 U/L (46-116); ANION GAP 11 mmol/L (8-16); BILIRUBIN,TOTAL 0.4 mg/dL (0.1-1.0); CALCIUM, TOTAL 9.1 mg/dL (8.8-10.5); CARBON DIOXIDE 23 mmol/L (22-29); CHLORIDE 101 mmol/L (98-107); CREATININE 1.89 mg/dL (0.60-1.30); GLOMERULAR FILTR. RATE CALC 37 mL/min (>60); POTASSIUM 4.5 mmol/L (3.5-5.1); SODIUM SERUM 135 mmol/L (136-145); TOTAL PROTEIN, SERUM 7.4 g/dL (6.4-8.2); UREA NITROGEN, BLOOD 35 mg/dL (7-18)
[2022-10-28 05:06] LABS: GLUCOSE,RANDOM 705 mg/dL (70-110)
[2022-10-28] MEDS ORDERED: SODIUM CHLORIDE 0.9% 1,000 ML IV ONE (05:15)
[2022-10-28] MEDS ORDERED: CefTRIAXone 1 GM/DEXTROSE 50 ML IV ONE (05:15)
[2022-10-28] MEDS ORDERED: INSULIN REGULAR, HUMAN 100 UNITS/ML IVP ONE (05:15)
[2022-10-28 05:28] LABS: ASPARTATE AMINOTRANSFERASE < 5 U/L (15-37)
[2022-10-28] MEDS ORDERED: ONDANSETRON HCL 4 MG/2 ML VIAL IVP PRN (05:30)
[2022-10-28] MEDS ORDERED: INSULIN REGULAR, HUMAN 100 UNITS in SODIUM CHLORIDE 0.9% 99 ML IV PRN ×2 (05:30)
[2022-10-28] MEDS ORDERED: SODIUM CHLORIDE 0.9% 1,700 ML IV ONE (05:30)
[2022-10-28] MEDS ORDERED: ACETAMINOPHEN 325 MG TABLET PO PRN (05:30)
[2022-10-28 05:32] LABS: ABG BASE EXCESS -2.8 mmol/L (-2.0-3.0); ABG CARBOXYHEMOGLOBIN 0.6 % (0.0-1.5); ABG HCO3 22.4 mmol/L (22.0-26.0); ABG METHEMOGLOBIN 0.1 % (0.0-1.5); ABG OXYGEN CONTENT 20.5 mL/dL (15.0-23.0); ABG OXYGEN SATURATION 94.6 % (95.0-98.0); ABG OXYHEMOGLOBIN 93.9 % (94.0-100.0); ABG PCO2 39 mmHg (35-45); ABG PH 7.376 (7.35-7.450); ABG TOTAL HEMOGLOBIN 15.5 G/dL (12.0-18.0); PO2, ARTERIAL BG 75.7 mmHg (84.0-92.0); SOURCE, BLOOD GAS ARTERIAL; TEMPERATURE, FAHRENHEIT, BG 98.6 FAHREN (96.0-98.6)
[2022-10-28 05:33] LABS: ALLEN TEST, BLOOD GAS Positive; O2 DEVICE,BLOOD GAS ROOM AIR (ROOM AIR); SITE, BLOOD GAS LFT RADIAL
[2022-10-28 06:30] LABS: LACTIC ACID 1.3 mmol/L (0.4-2.0)
[2022-10-28] MEDS ORDERED: GLUCAGON,HUMAN RECOMBINANT 1 MG VIAL IM PRN (06:30)
[2022-10-28] MEDS ORDERED: INSULIN LISPRO 100 UNITS/ML SQ PRN (06:30)
[2022-10-28] MEDS ORDERED: INSULIN GLARGINE,HUM.REC.ANLOG 100 UNITS/ML SQ SCH (06:45)
[2022-10-28] MEDS ORDERED: DEXTROSE 50%-WATER 25 GM/50 ML SYG IVP PRN (06:45)
[2022-10-28 07:31] LABS: GLUCOMETER DEV NAME(LOC) ERT.5; GLUCOSE,POINT OF CARE 519 MG/DL (70-110)
[2022-10-28] MEDS: HEPARIN SODIUM,PORCINE 5,000 UNITS/ML VIAL SQ SCH ×3 (07:38→23:19)
[2022-10-28] MEDS: SODIUM CHLORIDE 0.9% 1,000 ML IV SCH ×2 (07:38→20:05)
[2022-10-28] MEDS ORDERED: INSULIN REGULAR, HUMAN 100 UNITS/ML SQ ONE (08:30)
[2022-10-28] MEDS: DOCUSATE SODIUM 100 MG CAPSULE PO SCH ×2 (08:35→20:03)
[2022-10-28] MEDS ORDERED: CefTRIAXone 1 GM/DEXTROSE 50 ML IV SCH (09:00)
[2022-10-28 10:21] VITALS: BP 157/89; PULSE 78; RESP 20; TEMP 98.2
[2022-10-28] MEDS: MULTIVITAMINS WITH MINERALS, THERAPEUTIC TABLET PO SCH (10:38)
[2022-10-28] MEDS: ATORVASTATIN CALCIUM 20 MG TABLET PO SCH (10:39)
[2022-10-28] MEDS: METOPROLOL TARTRATE 25 MG TABLET PO SCH ×2 (10:39→20:03)
[2022-10-28] MEDS: LISINOPRIL 20 MG TABLET PO SCH (10:39)
[2022-10-28] MEDS: TERBINAFINE HCL 250 MG TABLET PO SCH (11:54)
[2022-10-28] MEDS: BACLOFEN 10 MG TABLET PO SCH ×2 (11:55→22:07)
[2022-10-28] MEDS: OXYBUTYNIN CHLORIDE 5 MG TABLET PO SCH ×2 (11:55→20:03)
[2022-10-28] MEDS: INSULIN GLARGINE,HUM.REC.ANLOG 100 UNITS/ML SQ SCH ×2 (11:57→20:02)
[2022-10-28] MEDS: INSULIN LISPRO 100 UNITS/ML SQ PRN ×2 (12:00→20:01)
[2022-10-28 13:54] VITALS: BP 149/84; PULSE 72; RESP 20; TEMP 98
[2022-10-28 15:41] LABS: GLUCOMETER DEV NAME(LOC) 5S.2C; GLUCOSE,POINT OF CARE 283 MG/DL (70-110)
[2022-10-28 16:19] VITALS: BP 141/85; PULSE 73; RESP 20; TEMP 97.8
[2022-10-28 16:55] LABS: GLUCOMETER DEV NAME(LOC) 5N.1C; GLUCOSE,POINT OF CARE 128 MG/DL (70-110)
[2022-10-28 19:54] VITALS: BP 135/75; PULSE 66; RESP 20; TEMP 97.8
[2022-10-29 00:12] VITALS: BP 127/71; PULSE 61; RESP 20; TEMP 97.9
[2022-10-29] MEDS: SODIUM CHLORIDE 0.9% 1,000 ML IV SCH ×2 (02:39→15:25)
[2022-10-29 04:51] VITALS: BP 145/72; PULSE 61; RESP 18; TEMP 98
[2022-10-29] MEDS: CefTRIAXone 1 GM/DEXTROSE 50 ML IV SCH (04:57)
[2022-10-29 06:32] LABS: BASOPHILS % (AUTO) 0.5 % (0.0-2.0); HEMATOCRIT 44.1 % (41-53); HEMOGLOBIN 15.1 g/dL (13.5-17.5); LYMPHOCYTES # (AUTO) 2.2 K/uL (1.0-4.8); LYMPHOCYTES % (AUTO) 28.8 % (22.0-44.0); MEAN CORPUSCULAR HEMOGLOBIN 34.7 pg (26.0-34.0); MEAN CORPUSCULAR HGB CONC 34.4 G/dL (31.0-37.0); MEAN CORPUSCULAR VOLUME 101 fL (80-100); MONOCYTES # (AUTO) 0.6 K/uL (0.1-1.0); MONOCYTES % (AUTO) 8.3 % (2.0-9.0); NEUTROPHILS # (AUTO) 4.6 K/uL (1.8-7.7); NEUTROPHILS % (AUTO) 59.4 % (40.0-70.0); PLATELET COUNT (AUTO) 188 K/uL (150-450); RED BLOOD CELL COUNT(AUTO) 4.36 MIL/uL (4.50-5.90); RED CELL DISTRIBUTION WIDTH 13.5 % (11.5-14.5); WHITE BLOOD COUNT (AUTO) 7.8 K/uL (4.5-11.0)
[2022-10-29 07:01] LABS: GLUCOMETER DEV NAME(LOC) 5N.1C; GLUCOSE,POINT OF CARE 235 MG/DL (70-110)
[2022-10-29 07:02] LABS: CALCIUM, TOTAL 8.8 mg/dL (8.8-10.5); CREATININE 1.33 mg/dL (0.60-1.30); MAGNESIUM 2.2 mg/dL (1.80-2.40); POTASSIUM 4.3 mmol/L (3.5-5.1)
[2022-10-29 07:32] VITALS: BP 136/78; PULSE 65; RESP 19; TEMP 98.1
[2022-10-29 08:27] LABS: RBC MORPHOLOGY COMMENT ABNORMAL RBC MORPH
[2022-10-29] MEDS: TERBINAFINE HCL 250 MG TABLET PO SCH ×2 (09:00→09:05)
[2022-10-29] MEDS: ATORVASTATIN CALCIUM 20 MG TABLET PO SCH (09:05)
[2022-10-29] MEDS: OXYBUTYNIN CHLORIDE 5 MG TABLET PO SCH ×2 (09:06→21:47)
[2022-10-29] MEDS: BACLOFEN 10 MG TABLET PO SCH ×2 (09:06→21:47)
[2022-10-29] MEDS: METOPROLOL TARTRATE 25 MG TABLET PO SCH ×2 (09:07→21:47)
[2022-10-29] MEDS: HEPARIN SODIUM,PORCINE 5,000 UNITS/ML VIAL SQ SCH ×2 (09:07→15:24)
[2022-10-29] MEDS: LISINOPRIL 20 MG TABLET PO SCH (09:07)
[2022-10-29] MEDS: DOCUSATE SODIUM 100 MG CAPSULE PO SCH ×2 (09:07→21:48)
[2022-10-29] MEDS: MULTIVITAMINS WITH MINERALS, THERAPEUTIC TABLET PO SCH (09:07)
[2022-10-29] MEDS: INSULIN GLARGINE,HUM.REC.ANLOG 100 UNITS/ML SQ SCH ×2 (09:15→21:49)
[2022-10-29] MEDS: INSULIN LISPRO 100 UNITS/ML SQ PRN ×2 (11:55→21:48)
[2022-10-29 12:05] VITALS: BP 144/69; PULSE 66; RESP 19; TEMP 98.3
[2022-10-29 16:48] VITALS: BP 136/72; PULSE 69; RESP 18; TEMP 98
[2022-10-29 17:26] LABS: GLUCOMETER DEV NAME(LOC) 5N.2C; GLUCOSE,POINT OF CARE 133 MG/DL (70-110)
[2022-10-29 19:25] VITALS: BP 139/67; PULSE 75; RESP 19; TEMP 98.8
[2022-10-29 21:51] LABS: GLUCOMETER DEV NAME(LOC) 5S.1B; GLUCOSE,POINT OF CARE 197 MG/DL (70-110)
[2022-10-29 21:51] LABS: GLUCOMETER DEV NAME(LOC) 5N.1C; GLUCOSE,POINT OF CARE 124 MG/DL (70-110)
[2022-10-29] MEDS: GABAPENTIN 400 MG CAPSULE PO SCH (23:31)
[2022-10-30 00:39] VITALS: BP 146/77; PULSE 69; RESP 18; TEMP 98.3
[2022-10-30] MEDS: SODIUM CHLORIDE 0.9% 1,000 ML IV SCH ×2 (01:41→11:40)
[2022-10-30] MEDS: HEPARIN SODIUM,PORCINE 5,000 UNITS/ML VIAL SQ SCH ×3 (01:47→15:56)
[2022-10-30 05:05] VITALS: BP 149/85; PULSE 65; RESP 19; TEMP 98.3
[2022-10-30] MEDS: CefTRIAXone 1 GM/DEXTROSE 50 ML IV SCH (05:39)
[2022-10-30] MEDS: GABAPENTIN 400 MG CAPSULE PO SCH ×3 (05:41→18:08)
[2022-10-30] MEDS: MULTIVITAMINS WITH MINERALS, THERAPEUTIC TABLET PO SCH (08:20)
[2022-10-30] MEDS: DOCUSATE SODIUM 100 MG CAPSULE PO SCH (08:20)
[2022-10-30] MEDS: METOPROLOL TARTRATE 25 MG TABLET PO SCH (08:23)
[2022-10-30] MEDS: TERBINAFINE HCL 250 MG TABLET PO SCH (08:23)
[2022-10-30] MEDS: LISINOPRIL 20 MG TABLET PO SCH (08:23)
[2022-10-30] MEDS: OXYBUTYNIN CHLORIDE 5 MG TABLET PO SCH (08:23)
[2022-10-30] MEDS: ATORVASTATIN CALCIUM 20 MG TABLET PO SCH (08:23)
[2022-10-30 08:24] VITALS: BP 158/89; PULSE 69; RESP 18; TEMP 98.8
[2022-10-30] MEDS: INSULIN GLARGINE,HUM.REC.ANLOG 100 UNITS/ML SQ SCH (08:32)
[2022-10-30] MEDS: BACLOFEN 10 MG TABLET PO SCH (08:40)
[2022-10-30 11:36] LABS: GLUCOMETER DEV NAME(LOC) 5S.2C; GLUCOSE,POINT OF CARE 98 MG/DL (70-110)
[2022-10-30 11:36] LABS: GLUCOMETER DEV NAME(LOC) 5S.2C; GLUCOSE,POINT OF CARE 155 MG/DL (70-110)
[2022-10-30 11:41] LABS: GLUCOMETER DEV NAME(LOC) 5N.1C; GLUCOSE,POINT OF CARE 136 MG/DL (70-110)
[2022-10-30] MEDS: INSULIN LISPRO 100 UNITS/ML SQ PRN (11:51)
[2022-10-30 13:09] VITALS: BP 146/87; PULSE 70; RESP 20; TEMP 98.6
[2022-10-30 14:00] VITALS: BP 124/68; PULSE 77; RESP 20; TEMP 98.9
[2022-10-30] MEDS ORDERED: INSU100I70 SQ (18:09)
[2022-10-30] MEDS ORDERED: CEFU500T41 PO (18:14)
[2022-10-31 00:46] LABS: GLUCOMETER DEV NAME(LOC) 6N.2B; GLUCOSE,POINT OF CARE 119 MG/DL (70-110)
== END 2022-10-30 18:40 | disposition home or self-care (01) | DRG 872 ==
LOC: EMS 03:54 → 5S 08:39 → 6S 10-30 13:26
PROVIDERS: ADMIT Internal Medicine; ATTEND Internal Medicine
DX: A41.9 Sepsis, unspecified organism (principal); N39.0 Urinary tract infection, site not specified; E11.65 Type 2 diabetes mellitus with hyperglycemia; N31.2 Flaccid neuropathic bladder, not elsewhere classified; I10 Essential (primary) hypertension; E78.00 Pure hypercholesterolemia, unspecified; Z79.899 Other long term (current) drug therapy
CPT/HCPCS: 71046; 80048; 80053; 81001; 82009; 82805; 82962; 83605; 83735; 83930; 83935; 84145; 85025; 87040; 87086; 87186; 93005; 97116; 97161; 99291; J0696; J1644; J1815; J7030; J7050; 36415-L1; 36415-TC

== ENCOUNTER 2023-02-01 22:02 | Emergency (ER) | payer MEDICARE, MEDICAID ==
[~2023-02-01] VITALS: Ht 165.1 cm; Wt 97.7 kg
[~2023-02-01 22:02] MED LIST changes: +CEFU500T41 PO; +INSU100I70 SQ
[2023-02-01 22:11] VITALS: BP 124/79; PULSE 80; RESP 16; TEMP 98.5
[2023-02-02] MEDS ORDERED: GABA-1201 PO (00:27)
[2023-02-02] MEDS ORDERED: CEPH-558 PO (00:28)
[2023-02-02] MEDS ORDERED: CEPHALEXIN MONOHYDRATE 500 MG CAPSULE PO ONE (00:30)
[2023-02-02 00:41] LABS: GLUCOMETER DEV NAME(LOC) ERT.5; GLUCOSE,POINT OF CARE 385 MG/DL (70-110)
== END 2023-02-02 01:51 | disposition home or self-care (01) ==
LOC: EMS 22:04
DX: T83.018A Breakdown (mechanical) of other urinary catheter, initial encounter (principal); E11.65 Type 2 diabetes mellitus with hyperglycemia; N39.0 Urinary tract infection, site not specified; G62.9 Polyneuropathy, unspecified; E11.9 Type 2 diabetes mellitus without complications; E78.00 Pure hypercholesterolemia, unspecified; I10 Essential (primary) hypertension; Z98.890 Other specified postprocedural states
CPT/HCPCS: 82962; 99283

== ENCOUNTER 2023-02-10 15:45 | Emergency (ER) | payer MEDICARE, MEDICAID ==
[~2023-02-10] VITALS: Ht 165.1 cm; Wt 100.0 kg
[~2023-02-10 15:45] MED LIST changes: +CEPH-558 PO; +GABA-1201 PO
[2023-02-10 20:53] VITALS: BP 135/82; PULSE 89; RESP 16; TEMP 97.3
== END 2023-02-10 20:55 | disposition home or self-care (01) ==
LOC: EMS 15:45
DX: S90.32XA Contusion of left foot, initial encounter (principal); G62.9 Polyneuropathy, unspecified; E11.9 Type 2 diabetes mellitus without complications; E78.00 Pure hypercholesterolemia, unspecified; I10 Essential (primary) hypertension; X58.XXXA Exposure to other specified factors, initial encounter; Y93.89 Activity, other specified; Y92.89 Other specified places as the place of occurrence of the external cause; Y99.8 Other external cause status
CPT/HCPCS: 82962; 99283

== ENCOUNTER 2023-04-11 18:39 | Emergency (ER) | payer MEDICARE, MEDICAID ==
[~2023-04-11] VITALS: Ht 165.1 cm; Wt 90.9 kg
[2023-04-11 20:27] LABS: APPEARANCE,URINE HAZY (CLEAR); BILIRUBIN,URINE NEGATIVE (NEGATIVE); COLOR,URINE YELLOW (YELLOW); GLUCOSE, URINE (UA) >=1000 mg/dL (NEGATIVE); KETONES,URINE NEGATIVE (NEGATIVE); LEUKOCYTE ESTERASE ,URINE LARGE (NEGATIVE); NITRATE,URINE POSITIVE (NEGATIVE); OCCULT BLOOD,URINE TRACE (NEGATIVE); PH,URINE 6.5 (5.0-8.0); PROTEIN,URINE TRACE mg/dL (NEGATIVE); SPECIFIC GRAVITIY, URINE 1.019 (1.003-1.030); UROBILINOGEN,URINE <=1.0 mg/dL (<=1.0)
[2023-04-11 20:31] LABS: BACTERIA,URINE Many /HPF (None Seen); SQUAMOUS EPITHELIAL CELL,UR Few /LPF (None Seen); WBC,URINE 26-50 /HPF (0-5)
[2023-04-11] MEDS: LIDOCAINE/PF 1% 2 ML VIAL IM ONE (20:53)
[2023-04-11] MEDS: CefTRIAXone SODIUM 1 GM/VIAL IM ONE (20:53)
[2023-04-11] MEDS ORDERED: CEPH-558 PO (20:59)
[2023-04-11 21:00] VITALS: BP 133/70; PULSE 70; RESP 16; TEMP 98.4
== END 2023-04-11 23:36 | disposition home or self-care (01) ==
LOC: EMS 18:42
DX: T83.090A Other mechanical complication of cystostomy catheter, initial encounter (principal); N39.0 Urinary tract infection, site not specified; E11.9 Type 2 diabetes mellitus without complications; I10 Essential (primary) hypertension; E78.00 Pure hypercholesterolemia, unspecified; Z98.890 Other specified postprocedural states; Y84.6 Urinary catheterization as the cause of abnormal reaction of the patient, or of later complication, without mention of misadventure at the time of the procedure
CPT/HCPCS: 99283; 81001; 87086; 87186; 96372; J0696; J3490

== ENCOUNTER 2023-09-03 08:00 | Emergency (ER) | payer MEDICARE, MEDICAID ==
[~2023-09-03] VITALS: Ht 165.1 cm; Wt 98.6 kg
[2023-09-03 08:13] VITALS: TEMP 97.4
[2023-09-03 08:25] LABS: GLUCOMETER DEV NAME(LOC) ERT.5; GLUCOSE,POINT OF CARE 268 MG/DL (70-110)
[2023-09-03 08:30] LABS: COVID AG,FIA SOURCE NASAL SWAB
[2023-09-03 09:38] LABS: BASOPHILS % (AUTO) 0.7 % (0.0-2.0); EOSINOPHILS % (AUTO) 1.3 % (1.0-6.0); HEMATOCRIT 48.1 % (41-53); HEMOGLOBIN 16.1 g/dL (13.5-17.5); LYMPHOCYTES % (AUTO) 17.7 % (22.0-44.0); MEAN CORPUSCULAR HGB CONC 33.6 G/dL (31.0-37.0); MEAN CORPUSCULAR VOLUME 101 fL (80-100); MONOCYTES # (AUTO) 1.1 K/uL (0.1-1.0); NEUTROPHILS # (AUTO) 3.6 K/uL (1.8-7.7); NEUTROPHILS % (AUTO) 61.3 % (40.0-70.0); PLATELET COUNT (AUTO) 174 K/uL (150-450); RED BLOOD CELL COUNT(AUTO) 4.74 MIL/uL (4.50-5.90); RED CELL DISTRIBUTION WIDTH 14.4 % (11.5-14.5); WHITE BLOOD COUNT (AUTO) 5.9 K/uL (4.5-11.0)
[2023-09-03 09:40] LABS: INFLUENZA TYPE A NEGATIVE FOR TYPE A (NEGATIVE); INFLUENZA TYPE B NEGATIVE FOR TYPE B (NEGATIVE)
[2023-09-03 09:45] LABS: CREATININE 1.88 mg/dL (0.60-1.30)
[2023-09-03 09:46] LABS: CALCIUM, TOTAL 9.8 mg/dL (8.8-10.5)
[2023-09-03 09:48] LABS: TROPONIN I-HIGH SENSITIVITY 13 ng/L (<76)
[2023-09-03 09:54] LABS: SARS-COV2 (COVID) ANTIGEN,FIA Positive (Negative)
[2023-09-03] MEDS ORDERED: ACET-66 PO (11:07)
[2023-09-03] MEDS ORDERED: GUAIFDM PO (11:07)
[2023-09-03] MEDS: GuaiFENesin/D-METHORPHAN [SUGAR-FREE] 200-20MG/10 ML SYRUP UDCUP PO ONE (11:35)
[2023-09-03] MEDS: ACETAMINOPHEN 500 MG TABLET PO ONE (11:35)
[2023-09-03 11:41] VITALS: BP 149/89; PULSE 93; RESP 18
== END 2023-09-03 12:19 | disposition home or self-care (01) ==
LOC: EMS 08:00
DX: J06.9 Acute upper respiratory infection, unspecified (principal); R53.1 Weakness; M79.10 Myalgia, unspecified site; E11.65 Type 2 diabetes mellitus with hyperglycemia; N18.9 Chronic kidney disease, unspecified; E78.00 Pure hypercholesterolemia, unspecified; I10 Essential (primary) hypertension; Z20.822 Contact with and (suspected) exposure to COVID-19
CPT/HCPCS: 80048; 82962; 84484; 85025; 87804; 99283

== ENCOUNTER 2024-09-05 15:41 | Emergency (ER) | payer MEDICARE, MEDICAID ==
[~2024-09-05] VITALS: Ht 165.1 cm; Wt 90.9 kg
[~2024-09-05 15:41] MED LIST changes: +ACET-66 PO; -CEFU500T41 PO; -CEPH-558 PO; +CIPR-515 PO; -GABA-534 PO; +GUAIFDM PO; +INSLAN SQ; -INSU100I26 SQ; -INSU100I70 SQ; +LACT10SO10 PO; -LISI20TA24 PO; -MULT-1239 PO; +MULT-248 PO
[2024-09-05 15:52] VITALS: TEMP 98.1
[2024-09-05 16:10] LABS: GLUCOMETER DEV NAME(LOC) ER.7; GLUCOSE,POINT OF CARE 132 MG/DL (70-110)
[2024-09-05] MEDS ORDERED: LEVO250T75 PO (18:09)
[2024-09-05 18:14] LABS: APPEARANCE,URINE CLEAR (CLEAR); GLUCOSE, URINE (UA) NEGATIVE (NEGATIVE); LEUKOCYTE ESTERASE ,URINE LARGE (NEGATIVE); NITRATE,URINE POSITIVE (NEGATIVE); OCCULT BLOOD,URINE SMALL (NEGATIVE); SPECIFIC GRAVITIY, URINE 1.020 (1.003-1.030)
[2024-09-05 18:27] LABS: SQUAMOUS EPITHELIAL CELL,UR Few /LPF (None Seen)
[2024-09-05 18:30] VITALS: BP 122/70; PULSE 79; RESP 18; O2SAT 98
== END 2024-09-05 18:31 | disposition home or self-care (01) ==
LOC: EMS 15:50
DX: T83.098A Other mechanical complication of other urinary catheter, initial encounter (principal); E11.9 Type 2 diabetes mellitus without complications; E78.00 Pure hypercholesterolemia, unspecified; I10 Essential (primary) hypertension; Z79.4 Long term (current) use of insulin; Z79.899 Other long term (current) drug therapy; Z98.890 Other specified postprocedural states
CPT/HCPCS: 51705; 81001; 82962; 87086; 99284